=== PATIENT | male | born 1985 | race Caucasian/White ===

== ENCOUNTER 2020-06-18 04:10 | Inpatient (IN) ==
[2020-06-18 04:15] VITALS: BMI 35.2
[2020-06-18] MEDS ORDERED: DILAUDID INJ IVP ONE ×3 (04:40→07:43)
[2020-06-18] MEDS ORDERED: ZOFRAN INJ 4 MG VIAL IVP ONE (04:40)
[2020-06-18] MEDS ORDERED: DILAUDID INJ ONE ×4 (04:44→07:51)
[2020-06-18] MEDS ORDERED: ZOFRAN INJ 4 MG VIAL ONE ×2 (04:44→14:42)
[2020-06-18] MEDS ORDERED: XYLOCAINE 1 % (PLAIN) ONE ×2 (06:48→07:42)
[2020-06-18] MEDS ORDERED: STERILE WATER IRRIGATION IR ONE (06:49)
[2020-06-18] MEDS ORDERED: BETADINE SOLN ONE (06:53)
[2020-06-18] MEDS: DILAUDID INJ IVP PRN ×3 (07:55→18:10)
[2020-06-18] MEDS ORDERED: NEOSPORIN OINT ONE (08:05)
--- NOTE | 2020-06-18 08:14 | DR.CP ---
HPI Time Seen Time Seen by Provider: 06/18/20 08:06 PCP Primary Care Physician: megan HPI Comment HPI Comment: rt sided chest discomfort. asked to return due to rads reports showing pneumo. Complaint Chief Complaint Doctor Comments: as above Chief Complaint:: chest pain from coughing COVID-19 Coronavirus risk:travel/contact w/high risk person: No Has patient experienced Coronavirus symptoms: Yes Coronavirus symptoms experienced: Coughing and Shortness of Breath Reviewed Nurses Notes Review: Yes Source History Provided: Patient Mode of Arrival Mode of Arrival: Ambulatory Timing Onset of Chief Complaint: 06/14/20 PMH PMH Past Medical History: Yes Past Medical History: Arthritis Past Surgical History: No Surgical History: Unknown Family History History of Family Medical Conditions: Yes Family Medical History: Diabetes Mellitus and Hypertension Social History Does any household member use tobacco: No Alcohol Use: None Do you use any recreational Drugs:: No Lives With: Family Lives Where: Home Travel Risk Coronavirus risk:travel/contact w/high risk person: No Has patient experienced Coronavirus symptoms: Yes Coronavirus symptoms experienced: Coughing and Shortness of Breath Infectious screening In the last 2 months have you had wt loss of >10#?: NO Have you had fever, night sweats or hemotysis?: No Have you traveled outside the country in the last 6 months?: No Isolation: Standard ROS Review of Systems Constitutional: See HPI Eyes: No Symptoms Reported ENTM: No Symptoms Reported Respiratoy: See HPI and Short of Breath Cardiovascular: See HPI and Chest Pain Gastrointestinal/Abdominal: No Symptoms Reported Neurological: No Symptoms Reported Musculoskeletal: No Symptoms Reported Integumentary: No Symptoms Reported Hematologic/Lymphatic: No Symptoms Reported PE Vitals Vitals: Temperature 98.2 F Pulse Rate [Apical] 72 Pulse Rate 65 Respiratory Rate 22 Blood Pressure [Left Arm] 150/88 Blood Pressure [Right Arm] 152/92 Blood Pressure 124/82 O2 Sat by Pulse Oximetry 92 General Limitations: No Limitations General Appearance: Alert and Anxious Head Head Exam: Normal Inspection Chest Chest Inspection: Normal Inspection; negative Tenderness and Abscess Respiratory Respiratory Exam: negative Normal Lung Sounds Bilat (decr lung sounds on right), Accessory Muscle Use, Chest Wall Tenderness and Respiratory Distress Cardiovascular Cardiovascular Exam: Regular Rate and Normal Heart Sounds Pulse: Normal Abdominal Exam Abdominal Exam: Normal Inspection, Normal Bowel Sounds and Soft; negative Tenderness Extremities Extremities Exam: Normal Inspection and Full ROM Back Back Exam: Normal Inspection and Full ROM Neurologic Neurological Exam: Alert, Oriented X3 and CN II-XII Intact Skin Skin Exam: Warm, Dry and Intact COURSE Treatment Treatment: rt sided pnuemo s/p tube thoracostomy per gen surg dr velez Opioid Opioid Risk Tool Age (Jose E box if 16-45): Yes History of Preadolescent Sexual Abuse: No Total: 1 Total Score Risk Category: Low Risk Copyright: Tr VENCES predicting aberrant behaviors Diagnosis Discharge Problem: Chest pain, Pneumothorax
[2020-06-18] MEDS ORDERED: NEOSPORIN OINT TOP ONE (08:24)
[2020-06-18] MEDS ORDERED: MORPHINE SULFATE INJ 2 MG INJ IV PRN (08:36)
--- NOTE | 2020-06-18 08:46 | RAD ---
HISTORYChest tube placementSTUDYSingle-view [id number]/06/2021FINDINGSThe trachea is midline. The cardiac silhouette is accentuated by portable technique. A right-sided chest tube is observed with approximately 20-30 percent right pneumothorax remaining. The left annabella thorax appears clear. The bony thorax is unremarkable.IMPRESSIONInterval placement of a right-sided chest tube with improved appearance of the right pneumothorax.Electronically signed by: HARRISON BULLOCK (Jun 18, 2020 08:44:49)
[2020-06-18] MEDS ORDERED: DILAUDID INJ IVP PRN (10:21)
[2020-06-18] MEDS: NS 1000 ML 1,000 ML IV SCH (11:10)
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
[2020-06-18] MEDS ORDERED: ZOFRAN INJ 4 MG VIAL IVP PRN (14:33)
[2020-06-18] MEDS: NORCO 10/325 TAB PO PRN ×2 (14:44→22:10)
--- NOTE | 2020-06-18 17:35 | RAD ---
HISTORYchest tubeSTUDYCHEST, 1 VIEWCOMPARISONEarlier same dayFINDINGSThe cardiomediastinal silhouette is stable. Similar large right pneumothorax. Interval advancement of right-sided chest tube. The left lung is clear. The bony thorax appears intact.IMPRESSIONSimilar right-sided pneumothorax. Interval advancement of right chest tube.Electronically signed by: AMARILIS BRANCH (Jun 18, 2020 17:32:09)
[2020-06-18] MEDS ORDERED: MYLICON TAB 80 MG CHEW PO PRN (20:30)
[2020-06-18] MEDS: MORPHINE SULFATE INJ 2 MG INJ IV PRN (20:33)
[2020-06-19] MEDS: NS 1000 ML 1,000 ML IV SCH ×3 (00:50→13:47)
[2020-06-19] MEDS: DILAUDID INJ IVP PRN ×4 (01:16→19:39)
[2020-06-19] MEDS: MORPHINE SULFATE INJ 2 MG INJ IV PRN ×3 (04:56→23:45)
[2020-06-19 05:03] LABS: BASOPHILS # (AUTO) 0.1 X10^3/uL (0.0-0.1); BASOPHILS % (AUTO) 0.6 % (0.2-1.0); EOSINOPHILS # (AUTO) 0.1 x10^3/uL (0.0-0.2); EOSINOPHILS % (AUTO) 0.9 % (0.9-2.9); HEMATOCRIT 44.3 % (42.0-54.0); HEMOGLOBIN 14.8 g/dL (13.5-18.0); LYMPHOCYTES # (AUTO) 2.9 X10^3/uL (1.3-2.9); LYMPHOCYTES % (AUTO) 31.2 % (21.0-51.0); MEAN CORPUSCULAR HEMOGLOBIN 30.1 pg (27.0-34.0); MEAN CORPUSCULAR HGB CONC 33.3 g/dL (33.0-35.0); MEAN CORPUSCULAR VOLUME 90.3 fL (80.0-100.0); MEAN PLATELET VOLUME 8.8 fL (7.4-11.0); MONOCYTES # (AUTO) 0.8 x10^3/uL (0.3-0.8); MONOCYTES % (AUTO) 8.8 % (0.0-13.0); NEUTROPHILS # (AUTO) 5.4 x10^3/uL (2.2-4.8); NEUTROPHILS % (AUTO) 58.5 % (42.0-75.0); PLATELET COUNT 219 X10^3/uL (150.0-450.0); RED CELL DISTRIBUTION WIDTH 13.7 % (11.6-16.5); WHITE BLOOD COUNT 9.2 X10^3/uL (3.6-10.0)
--- NOTE | 2020-06-19 05:11 | RAD ---
STUDY: CHEST, 1 VIEWCOMPARISON: June 18, 2020HISTORY: SOB, F/U FOR PNEUMOTHORAXFINDINGS:The right-sided pneumothorax is unchanged from prior study. Right chest tube is seen traversing along the right hemidiaphragm. This is unchanged from the prior study. Cardiomediastinal contour is stable. Left lung is clear.IMPRESSION:Right pneumothorax is stableElectronically signed by: Cameron Gilliam (Jun 19, 2020 05:08:47)
[2020-06-19 05:19] LABS: ALANINE AMINOTRANSFERASE 47 Units/L (12-78); ALBUMIN 3.5 g/dL (3.4-5.0); ALKALINE PHOSPHATASE 65 Units/L (46-116); ASPARTATE AMINO TRANSFERASE 25 Units/L (15-37); BLOOD UREA NITROGEN 10 mg/dL (7-18); CALCIUM 8.7 mg/dL (8.5-10.1); CARBON DIOXIDE 29.5 mmol/L (21-32); CHLORIDE 103 mmol/L (98-107); COR NA(FOR HYPERGLY) 139 mmol/L (136-145); CREATININE 0.86 mg/dL (0.70-1.30); SODIUM 139 mmol/L (136-145); TOTAL PROTEIN 6.7 g/dL (6.4-8.2); eGFR NON BLACK RACES > 60 (>60)
--- NOTE | 2020-06-19 08:28 | PCM.PROG ---
Progress Note Progress Note for Day of Date of Exam: 06/19/20 Subjective Subjective: Pt is a 35 year old male admitted for spontaneous pneumothorax of right lung s/p chest tube placement on 06/18/20. This morning patient reports that his breathing has improved but still has pain that is not adequately controlled. Labs/imaging: Wbc 9.2, Hgb 14.8, Plt 219, Na 139, K 4.0, Creatinine 0.86, Glucose 111, CXR this morning revealed right pneumothorax is stable. Will continue chest tube maintenance and pain control. Will increase morphine to help manage pain symptoms. Surgery following patient, will defer to Dr Devlin management and recommendations for chest tube. Continue to closely monitor and follow up labs/imaging in the morning. Past Medical Family Social History Past Med/Fam/Surg Hx: No changes since H&P Allergies: Allergies No Known Drug Allergies Allergy (Verified 10/22/18 23:33) Review of Systems ROS: No change since H&P Vital Signs and I&O's Vital Signs: Temperature 97.8 F Pulse Rate [Apical] 70 Pulse Rate 88 Respiratory Rate 22 Blood Pressure [Left Arm] 127/60 Blood Pressure [Right Arm] 125/95 Blood Pressure 120/75 O2 Sat by Pulse Oximetry 100 Intake and Output: Intake & Output 06/16/20 06/17/20 06/18/20 06/19/20 23:59 23:59 23:59 23:59 Intake Total 2171 / 2171 840 / 840 Output Total 1030 / 1030 835 / 835 Balance 1141 / 1141 5 / 5 Physical Exam Oriented: Normal Eyes: Normal Ear: Normal Nose: Normal Respiratory: Diminished (Right side) and OTHER (Right chest tube noted) Cardiovascular: Normal : Normal Auscultation: Bowel Sounds: Normal Tenderness: Normal Skin: Normal Musculoskeletal: Normal Psychiatric: Normal Mood Description: Calm Speech Pattern: Clear and Appropriate Laboratory and Diagnostics Result Diagrams: 06/19/20 04:35 06/19/20 04:35 Labs: Laboratory WBC 9.2 X10^3/uL (3.6-10.0) 06/19/20 04:35 RBC 4.90 X10^6/uL (4.7-6.0) 06/19/20 04:35 Hgb 14.8 g/dL (13.5-18.0) 06/19/20 04:35 Hct 44.3 % (42.0-54.0) 06/19/20 04:35 MCV 90.3 fL (80.0-100.0) 06/19/20 04:35 MCH 30.1 pg (27.0-34.0) 06/19/20 04:35 MCHC 33.3 g/dL (33.0-35.0) 06/19/20 04:35 RDW 13.7 % (11.6-16.5) 06/19/20 04:35 Plt Count 219 X10^3/uL (150.0-450.0) 06/19/20 04:35 MPV 8.8 fL (7.4-11.0) 06/19/20 04:35 Neut % (Auto) 58.5 % (42.0-75.0) 06/19/20 04:35 Lymph % (Auto) 31.2 % (21.0-51.0) 06/19/20 04:35 Cooper % (Auto) 8.8 % (0.0-13.0) 06/19/20 04:35 Eos % (Auto) 0.9 % (0.9-2.9) 06/19/20 04:35 Baso % (Auto) 0.6 % (0.2-1.0) 06/19/20 04:35 Neut # (Auto) 5.4 x10^3/uL (2.2-4.8) H 06/19/20 04:35 Lymph # (Auto) 2.9 X10^3/uL (1.3-2.9) 06/19/20 04:35 Cooper # (Auto) 0.8 x10^3/uL (0.3-0.8) 06/19/20 04:35 Eos # (Auto) 0.1 x10^3/uL (0.0-0.2) 06/19/20 04:35 Baso # (Auto) 0.1 X10^3/uL (0.0-0.1) 06/19/20 04:35 Absolute Nucleated RBC 0.0 /100WBC 06/19/20 04:35 Sodium 139 mmol/L (136-145) 06/19/20 04:35 Corrected Sodium 139 mmol/L (136-145) 06/19/20 04:35 Potassium 4.0 mmol/L (3.5-5.1) 06/19/20 04:35 Chloride 103 mmol/L (98-107) 06/19/20 04:35 Carbon Dioxide 29.5 mmol/L (21-32) 06/19/20 04:35 BUN 10 mg/dL (7-18) 06/19/20 04:35 Creatinine 0.86 mg/dL (0.70-1.30) 06/19/20 04:35 Est GFR (MDRD) Af Amer > 60 (>60) 06/19/20 04:35 Est GFR (MDRD) Non-Af > 60 (>60) 06/19/20 04:35 Glucose 111 mg/dL (65-99) H 06/19/20 04:35 Calcium 8.7 mg/dL (8.5-10.1) 06/19/20 04:35 Corrected Calcium TNP 06/19/20 04:35 Total Bilirubin 0.40 mg/dL (0.2-1.0) 06/19/20 04:35 AST 25 Units/L (15-37) 06/19/20 04:35 ALT 47 Units/L (12-78) 06/19/20 04:35 Alkaline Phosphatase 65 Units/L (46-116) 06/19/20 04:35 Total Protein 6.7 g/dL (6.4-8.2) 06/19/20 04:35 Albumin 3.5 g/dL (3.4-5.0) 06/19/20 04:35 Globulin 3.2 g/dL (2.5-4.5) 06/19/20 04:35 Albumin/Globulin Ratio 1.1 Ratio (1.1-2.1) 06/19/20 04:35 Plan (1) Pneumothorax: Status: Acute Qualifiers: Pneumothorax type: spontaneous, primary Qualified Code(s): J93.11 - Primary spontaneous pneumothorax Plan: Right chest tube placement (06/18/20) Follow surgery recommendations. (2) Chest pain: Status: Acute
[2020-06-19] MEDS ORDERED: VERSED ONE (09:15)
[2020-06-19] MEDS ORDERED: DIPRIVAN VIAL ONE (09:15)
[2020-06-19] MEDS ORDERED: XYLOCAINE 1 % (PLAIN) ONE ×2 (09:15→09:32)
[2020-06-19] MEDS ORDERED: DECADRON INJ ONE (09:20)
[2020-06-19] MEDS ORDERED: OFIRMEV IV 1000 MG VIAL 1,000 MG/100 ML VIAL IV ONE (09:21)
[2020-06-19] MEDS ORDERED: FENTANYL INJ 100 mcg ONE (09:21)
[2020-06-19] MEDS: SOMA TAB 350 MG PO SCH (09:41)
[2020-06-19] MEDS ORDERED: BACTROBAN TOPICAL OINT ONE (09:48)
--- NOTE | 2020-06-19 11:46 | RAD ---
HISTORYS/P CHEST TUBE MANIPULATION IN ORSTUDYCHEST, 1 VIEWCOMPARISONThere earlier same dayFINDINGSThe trachea is midline. The cardiac silhouette is stable.. A right-sided chest tube is noted with tip overlying the right lung apex. Previously noted pneumothorax appears to have resolved. There is a small amount of infiltrate/effusion in the right lung base. Left lung is clear. The bony thorax is unremarkable.IMPRESSIONRight-sided chest tube placement as above with no pneumothorax on this exam. There is small effusion/infiltrate probably due to atelectasis.Electronically signed by: YASMINE COBIAN (Jun 19, 2020 10:20:33)
[2020-06-19] MEDS: NORCO 10/325 TAB PO PRN (21:35)
[2020-06-20] MEDS: DILAUDID INJ IVP PRN ×3 (04:27→18:30)
[2020-06-20] MEDS: NS 1000 ML 1,000 ML IV SCH ×3 (04:28→21:31)
[2020-06-20 06:13] LABS: BASOPHILS % (AUTO) 0.3 % (0.2-1.0); EOSINOPHILS # (AUTO) 0.1 x10^3/uL (0.0-0.2); EOSINOPHILS % (AUTO) 0.9 % (0.9-2.9); HEMATOCRIT 41.5 % (42.0-54.0); LYMPHOCYTES # (AUTO) 3.3 X10^3/uL (1.3-2.9); LYMPHOCYTES % (AUTO) 28.3 % (21.0-51.0); MEAN CORPUSCULAR HEMOGLOBIN 30.1 pg (27.0-34.0); MEAN CORPUSCULAR HGB CONC 33.7 g/dL (33.0-35.0); MEAN CORPUSCULAR VOLUME 89.3 fL (80.0-100.0); MONOCYTES % (AUTO) 8.1 % (0.0-13.0); NEUTROPHILS # (AUTO) 7.4 x10^3/uL (2.2-4.8); NEUTROPHILS % (AUTO) 62.4 % (42.0-75.0); PLATELET COUNT 222 X10^3/uL (150.0-450.0); RED BLOOD COUNT 4.65 X10^6/uL (4.7-6.0); RED CELL DISTRIBUTION WIDTH 13.4 % (11.6-16.5); WHITE BLOOD COUNT 11.8 X10^3/uL (3.6-10.0)
--- NOTE | 2020-06-20 06:32 | RAD ---
HISTORYF/U FOR RT SIDED PNEUMOTHORAXSTUDYCHEST, 1 VIEWCOMPARISONOne day prior.TECHNIQUEAP chest, 2 imagesFINDINGSCardiac and mediastinal contours are within normal limits. There is a right thoracostomy tube with the tip at the right apex. Right medial base opacity is similar to prior there is subcutaneous emphysema in the chest wall. No pneumothorax is identified. No significant pleural effusion.IMPRESSIONSimilar positioning of right thoracostomy tube. No pneumothorax identified. Right medial base opacity appears similar.Electronically signed by: Doug Appiah (Jun 20, 2020 06:31:11)
[2020-06-20 06:34] LABS: ALANINE AMINOTRANSFERASE 47 Units/L (12-78); ALBUMIN 3.2 g/dL (3.4-5.0); ALKALINE PHOSPHATASE 58 Units/L (46-116); ASPARTATE AMINO TRANSFERASE 20 Units/L (15-37); BLOOD UREA NITROGEN 12 mg/dL (7-18); CALCIUM 8.8 mg/dL (8.5-10.1); CARBON DIOXIDE 23.8 mmol/L (21-32); CHLORIDE 103 mmol/L (98-107); COR CA(FOR HYPOALB) 9.4 mg/dL (8.5-10.1); CREATININE 0.73 mg/dL (0.70-1.30); SODIUM 136 mmol/L (136-145); TOTAL PROTEIN 6.5 g/dL (6.4-8.2); eGFR NON BLACK RACES > 60 (>60)
[2020-06-20] MEDS: MORPHINE SULFATE INJ 2 MG INJ IV PRN ×3 (07:32→21:31)
--- NOTE | 2020-06-20 08:33 | DR.PROGNOT ---
Hospital Progress Notes - Progress Note for Day of: Progress Note Date: 06/20/20 - Chief Complaint Chief Complaint: nonew complaint today . no SOB and less chest pain . chest Xray is showing expanded RT lung with small Rt pleural fluid and atelectasis . mild leukocytosis . O2 sat 94 to 97 - Past Medical Family Social History Past Med/Fam/Surg Hx: No changes since H&P Allergies: Allergies No Known Drug Allergies Allergy (Verified 10/22/18 23:33) - Review Of Systems ROS: No change since H&P - Vital Signs Vital Signs: Temperature 97.9 F Pulse Rate [Apical] 52 Pulse Rate 88 Respiratory Rate 20 Blood Pressure [Left Arm] 112/72 Blood Pressure [Right Arm] 115/76 Blood Pressure 120/75 O2 Sat by Pulse Oximetry 94 - Physical Exam Oriented: Normal Eyes: Normal Ear: Normal Nose: Normal Respiratory: OTHER (Right chest tube noted) Cardiovascular: Normal : Normal GI:Auscultation: Normal GI:Palpation: Normal GI: Tenderness: Normal Skin: Normal Musculoskeletal: Normal Psychiatric: Normal Mood Description: Calm Speech Pattern: Clear, Appropriate - Laboratory and Diagnostics Result Diagrams: 06/20/20 04:30 06/20/20 04:30 Labs: Laboratory WBC 11.8 X10^3/uL (3.6-10.0) H 06/20/20 04:30 RBC 4.65 X10^6/uL (4.7-6.0) L 06/20/20 04:30 Hgb 14.0 g/dL (13.5-18.0) 06/20/20 04:30 Hct 41.5 % (42.0-54.0) L 06/20/20 04:30 MCV 89.3 fL (80.0-100.0) 06/20/20 04:30 MCH 30.1 pg (27.0-34.0) 06/20/20 04:30 MCHC 33.7 g/dL (33.0-35.0) 06/20/20 04:30 RDW 13.4 % (11.6-16.5) 06/20/20 04:30 Plt Count 222 X10^3/uL (150.0-450.0) 06/20/20 04:30 MPV 9.0 fL (7.4-11.0) 06/20/20 04:30 Neut % (Auto) 62.4 % (42.0-75.0) 06/20/20 04:30 Lymph % (Auto) 28.3 % (21.0-51.0) 06/20/20 04:30 [place] % (Auto) 8.1 % (0.0-13.0) 06/20/20 04:30 Eos % (Auto) 0.9 % (0.9-2.9) 06/20/20 04:30 Baso % (Auto) 0.3 % (0.2-1.0) 06/20/20 04:30 Neut # (Auto) 7.4 x10^3/uL (2.2-4.8) H 06/20/20 04:30 Lymph # (Auto) 3.3 X10^3/uL (1.3-2.9) H 06/20/20 04:30 [place] # (Auto) 1.0 x10^3/uL (0.3-0.8) H 06/20/20 04:30 Eos # (Auto) 0.1 x10^3/uL (0.0-0.2) 06/20/20 04:30 Baso # (Auto) 0.0 X10^3/uL (0.0-0.1) 06/20/20 04:30 Absolute Nucleated RBC 0.1 /100WBC 06/20/20 04:30 Sodium 136 mmol/L (136-145) 06/20/20 04:30 Corrected Sodium TNP 06/20/20 04:30 Potassium 3.7 mmol/L (3.5-5.1) 06/20/20 04:30 Chloride 103 mmol/L (98-107) 06/20/20 04:30 Carbon Dioxide 23.8 mmol/L (21-32) 06/20/20 04:30 BUN 12 mg/dL (7-18) 06/20/20 04:30 Creatinine 0.73 mg/dL (0.70-1.30) 06/20/20 04:30 Est GFR (MDRD) Af Amer > 60 (>60) 06/20/20 04:30 Est GFR (MDRD) Non-Af > 60 (>60) 06/20/20 04:30 Glucose 105 mg/dL (65-99) H 06/20/20 04:30 Calcium 8.8 mg/dL (8.5-10.1) 06/20/20 04:30 Corrected Calcium 9.4 mg/dL (8.5-10.1) 06/20/20 04:30 Total Bilirubin 0.40 mg/dL (0.2-1.0) 06/20/20 04:30 AST 20 Units/L (15-37) 06/20/20 04:30 ALT 47 Units/L (12-78) 06/20/20 04:30 Alkaline Phosphatase 58 Units/L (46-116) 06/20/20 04:30 Total Protein 6.5 g/dL (6.4-8.2) 06/20/20 04:30 Albumin 3.2 g/dL (3.4-5.0) L 06/20/20 04:30 Globulin 3.3 g/dL (2.5-4.5) 06/20/20 04:30 Albumin/Globulin Ratio 1.0 Ratio (1.1-2.1) L 06/20/20 04:30 - Assessment and Plan 1: spontaneous pneumothorax Rt side . s/p placement of chest tube . same plan for now . incentive spirometer . keep chest tube for few days before testing for more leak . - Problem Patient Problems: Patient Problems Chest pain (Acute) R07.9 Pneumothorax (Acute) J93.9
[2020-06-20] MEDS: SOMA TAB 350 MG PO SCH (08:40)
[2020-06-20] MEDS: NORCO 10/325 TAB PO PRN (11:10)
--- NOTE | 2020-06-20 11:37 | PCM.PROG ---
Progress Note Progress Note for Day of Date of Exam: 06/20/20 Subjective Subjective: Pt is a 35 year old male admitted for spontaneous pneumothorax of right lung s/p chest tube placement on 06/18/20. Yesterday patient had chest tube repositioned with successful re-expansion of right lung seen on CXR. He reports his breathing has improved. Labs/imaging: Wbc 11.8, Hgb 14, Plt 222, Na 136, K 3.7, Creatinine 0.73, Glucose 105, CXR this morning revealed: Similar positioning of right thoracostomy tube. No pneumothorax identified. Right medial base opacity appears similar. Will continue chest tube maintenance and pain control. Surgery following patient, will defer to Dr Devlin management and recommendations for chest tube. Order Chest CT tomorrow to evaluate for any pleural blebs. Continue to closely monitor and follow up labs/imaging in the morning. Past Medical Family Social History Past Med/Fam/Surg Hx: No changes since H&P Allergies: Allergies No Known Drug Allergies Allergy (Verified 10/22/18 23:33) Review of Systems ROS: No change since H&P Vital Signs and I&O's Vital Signs: Temperature 98.1 F Pulse Rate [Apical] 75 Pulse Rate 88 Respiratory Rate 22 Blood Pressure [Left Arm] 139/78 Blood Pressure [Right Arm] 115/76 Blood Pressure 120/75 O2 Sat by Pulse Oximetry 92 Intake and Output: Intake & Output 06/17/20 06/18/20 06/19/20 06/20/20 23:59 23:59 23:59 23:59 Intake Total 2171 / 2171 3582 / 3582 727 / 727 Output Total 1030 / 1030 3156 / 3156 500 / 500 Balance 1141 / 1141 426 / 426 227 / 227 Physical Exam Oriented: Normal Eyes: Normal Ear: Normal Nose: Normal Respiratory: OTHER (Right chest tube noted) Cardiovascular: Normal : Normal Auscultation: Bowel Sounds: Normal Tenderness: Normal Skin: Normal Musculoskeletal: Normal Psychiatric: Normal Mood Description: Calm Speech Pattern: Clear and Appropriate Laboratory and Diagnostics Result Diagrams: 06/20/20 04:30 06/20/20 04:30 Labs: Laboratory WBC 11.8 X10^3/uL (3.6-10.0) H 06/20/20 04:30 RBC 4.65 X10^6/uL (4.7-6.0) L 06/20/20 04:30 Hgb 14.0 g/dL (13.5-18.0) 06/20/20 04:30 Hct 41.5 % (42.0-54.0) L 06/20/20 04:30 MCV 89.3 fL (80.0-100.0) 06/20/20 04:30 MCH 30.1 pg (27.0-34.0) 06/20/20 04:30 MCHC 33.7 g/dL (33.0-35.0) 06/20/20 04:30 RDW 13.4 % (11.6-16.5) 06/20/20 04:30 Plt Count 222 X10^3/uL (150.0-450.0) 06/20/20 04:30 MPV 9.0 fL (7.4-11.0) 06/20/20 04:30 Neut % (Auto) 62.4 % (42.0-75.0) 06/20/20 04:30 Lymph % (Auto) 28.3 % (21.0-51.0) 06/20/20 04:30 Weber % (Auto) 8.1 % (0.0-13.0) 06/20/20 04:30 Eos % (Auto) 0.9 % (0.9-2.9) 06/20/20 04:30 Baso % (Auto) 0.3 % (0.2-1.0) 06/20/20 04:30 Neut # (Auto) 7.4 x10^3/uL (2.2-4.8) H 06/20/20 04:30 Lymph # (Auto) 3.3 X10^3/uL (1.3-2.9) H 06/20/20 04:30 Weber # (Auto) 1.0 x10^3/uL (0.3-0.8) H 06/20/20 04:30 Eos # (Auto) 0.1 x10^3/uL (0.0-0.2) 06/20/20 04:30 Baso # (Auto) 0.0 X10^3/uL (0.0-0.1) 06/20/20 04:30 Absolute Nucleated RBC 0.1 /100WBC 06/20/20 04:30 Sodium 136 mmol/L (136-145) 06/20/20 04:30 Corrected Sodium TNP 06/20/20 04:30 Potassium 3.7 mmol/L (3.5-5.1) 06/20/20 04:30 Chloride 103 mmol/L (98-107) 06/20/20 04:30 Carbon Dioxide 23.8 mmol/L (21-32) 06/20/20 04:30 BUN 12 mg/dL (7-18) 06/20/20 04:30 Creatinine 0.73 mg/dL (0.70-1.30) 06/20/20 04:30 Est GFR (MDRD) Af Amer > 60 (>60) 06/20/20 04:30 Est GFR (MDRD) Non-Af > 60 (>60) 06/20/20 04:30 Glucose 105 mg/dL (65-99) H 06/20/20 04:30 Calcium 8.8 mg/dL (8.5-10.1) 06/20/20 04:30 Corrected Calcium 9.4 mg/dL (8.5-10.1) 06/20/20 04:30 Total Bilirubin 0.40 mg/dL (0.2-1.0) 06/20/20 04:30 AST 20 Units/L (15-37) 06/20/20 04:30 ALT 47 Units/L (12-78) 06/20/20 04:30 Alkaline Phosphatase 58 Units/L (46-116) 06/20/20 04:30 Total Protein 6.5 g/dL (6.4-8.2) 06/20/20 04:30 Albumin 3.2 g/dL (3.4-5.0) L 06/20/20 04:30 Globulin 3.3 g/dL (2.5-4.5) 06/20/20 04:30 Albumin/Globulin Ratio 1.0 Ratio (1.1-2.1) L 06/20/20 04:30 Plan (1) Pneumothorax: Status: Acute Qualifiers: Pneumothorax type: spontaneous, primary Qualified Code(s): J93.11 - Primary spontaneous pneumothorax Plan: Right chest tube placement (06/18/20) Follow surgery recommendations. (2) Chest pain: Status: Acute
[2020-06-21] MEDS: NORCO 10/325 TAB PO PRN ×3 (00:12→21:34)
[2020-06-21] MEDS: DILAUDID INJ IVP PRN ×2 (02:28→09:32)
[2020-06-21] MEDS: MORPHINE SULFATE INJ 2 MG INJ IV PRN ×3 (05:05→19:54)
[2020-06-21 05:09] LABS: BASOPHILS # (AUTO) 0.1 X10^3/uL (0.0-0.1); BASOPHILS % (AUTO) 0.6 % (0.2-1.0); EOSINOPHILS # (AUTO) 0.2 x10^3/uL (0.0-0.2); EOSINOPHILS % (AUTO) 1.8 % (0.9-2.9); HEMATOCRIT 44.4 % (42.0-54.0); HEMOGLOBIN 14.6 g/dL (13.5-18.0); LYMPHOCYTES # (AUTO) 3.1 X10^3/uL (1.3-2.9); LYMPHOCYTES % (AUTO) 36.1 % (21.0-51.0); MEAN CORPUSCULAR HEMOGLOBIN 29.8 pg (27.0-34.0); MEAN CORPUSCULAR HGB CONC 32.8 g/dL (33.0-35.0); MEAN CORPUSCULAR VOLUME 90.8 fL (80.0-100.0); MEAN PLATELET VOLUME 8.6 fL (7.4-11.0); MONOCYTES # (AUTO) 0.7 x10^3/uL (0.3-0.8); MONOCYTES % (AUTO) 7.6 % (0.0-13.0); NEUTROPHILS # (AUTO) 4.7 x10^3/uL (2.2-4.8); NEUTROPHILS % (AUTO) 53.9 % (42.0-75.0); PLATELET COUNT 228 X10^3/uL (150.0-450.0); RED BLOOD COUNT 4.89 X10^6/uL (4.7-6.0); RED CELL DISTRIBUTION WIDTH 13.3 % (11.6-16.5); WHITE BLOOD COUNT 8.7 X10^3/uL (3.6-10.0)
[2020-06-21 05:23] LABS: ALANINE AMINOTRANSFERASE 53 Units/L (12-78); ALBUMIN 3.1 g/dL (3.4-5.0); ALKALINE PHOSPHATASE 59 Units/L (46-116); ASPARTATE AMINO TRANSFERASE 23 Units/L (15-37); BLOOD UREA NITROGEN 16 mg/dL (7-18); CALCIUM 8.8 mg/dL (8.5-10.1); CARBON DIOXIDE 26.4 mmol/L (21-32); CHLORIDE 105 mmol/L (98-107); COR CA(FOR HYPOALB) 9.5 mg/dL (8.5-10.1); CREATININE 0.92 mg/dL (0.70-1.30); SODIUM 138 mmol/L (136-145); TOTAL PROTEIN 6.3 g/dL (6.4-8.2); eGFR NON BLACK RACES > 60 (>60)
--- NOTE | 2020-06-21 06:38 | CT ---
HISTORYS/P CHEST TUBE, RT SIDED PNEUMOTHORAXSTUDYCHEST W/O CONCOMPARISONChest radiograph from 06/20/2020.TECHNIQUEMultiple axial images of the chest were obtained from the thoracic inlet to the upper abdomen without the administration of IV contrast. Dose reduction techniques including Automated Exposure Control (AEC) and adjustment of mA and kV were utilized.FINDINGSLack of contrast limits evaluation.The visualized thyroid gland appears benign. Non-atherosclerotic normal caliber thoracic aorta. Pulmonary artery is normal in caliber centrally. The heart is mildly enlarged. No pericardial effusion. No pathologic adenopathy in the thorax. Mild patchy soft tissue density in the prevascular space is likely thymic tissue. Visualized upper abdomen has a benign appearance. No acute osseous abnormality. The trachea and mainstem bronchi appear patent. There is a right thoracostomy tube in situ with the tip at the right apex. There is a small residual right base pneumothorax. There is approximately 1.2 cm of pleural separation at the right base on image 38 series 4. Mild emphysema. There is significant atelectasis with collapse of most of the right lower and middle lobes. Mild left lower lobe dependent atelectasis. Subcutaneous emphysema in the chest wall, worse on the right.IMPRESSIONSmall right basilar pneumothorax remains. There is significant atelectasis of the right middle and lower lobes.Mild emphysema. Mild left lower lobe subsegmental atelectasis.Electronically signed by: Doug Appiah (Jun 21, 2020 06:36:34)
[2020-06-21] MEDS: NS 1000 ML 1,000 ML IV SCH ×2 (07:06→11:16)
--- NOTE | 2020-06-21 08:37 | DR.PROGNOT ---
Hospital Progress Notes - Progress Note for Day of: Progress Note Date: 06/21/20 - Chief Complaint Chief Complaint: comfortable today . no SOB and less chest pain . chest CT showed expanded RT lung with small Rt pneuomothorax , lower and middle lobe atelectasis . mild leukocytosis . O2 sat 94 to 97 - Past Medical Family Social History Past Med/Fam/Surg Hx: No changes since H&P Allergies: Allergies No Known Drug Allergies Allergy (Verified 10/22/18 23:33) - Review Of Systems ROS: No change since H&P - Vital Signs Vital Signs: Temperature 97.6 F Pulse Rate [Apical] 57 Pulse Rate 73 Respiratory Rate 20 Blood Pressure [Left Arm] 102/62 Blood Pressure [Right Arm] 115/76 Blood Pressure 120/75 O2 Sat by Pulse Oximetry 94 - Physical Exam Oriented: Normal Eyes: Normal Ear: Normal Nose: Normal Respiratory: OTHER (Right chest tube noted) Cardiovascular: Normal : Normal GI:Auscultation: Normal GI:Palpation: Normal GI: Tenderness: Normal Skin: Normal Musculoskeletal: Normal Psychiatric: Normal Mood Description: Calm Speech Pattern: Clear, Appropriate - Laboratory and Diagnostics Result Diagrams: 06/21/20 04:40 06/21/20 04:40 Labs: Laboratory WBC 8.7 X10^3/uL (3.6-10.0) 06/21/20 04:40 RBC 4.89 X10^6/uL (4.7-6.0) 06/21/20 04:40 Hgb 14.6 g/dL (13.5-18.0) 06/21/20 04:40 Hct 44.4 % (42.0-54.0) 06/21/20 04:40 MCV 90.8 fL (80.0-100.0) 06/21/20 04:40 MCH 29.8 pg (27.0-34.0) 06/21/20 04:40 MCHC 32.8 g/dL (33.0-35.0) L 06/21/20 04:40 RDW 13.3 % (11.6-16.5) 06/21/20 04:40 Plt Count 228 X10^3/uL (150.0-450.0) 06/21/20 04:40 MPV 8.6 fL (7.4-11.0) 06/21/20 04:40 Neut % (Auto) 53.9 % (42.0-75.0) 06/21/20 04:40 Lymph % (Auto) 36.1 % (21.0-51.0) 06/21/20 04:40 [place] % (Auto) 7.6 % (0.0-13.0) 06/21/20 04:40 Eos % (Auto) 1.8 % (0.9-2.9) 06/21/20 04:40 Baso % (Auto) 0.6 % (0.2-1.0) 06/21/20 04:40 Neut # (Auto) 4.7 x10^3/uL (2.2-4.8) 06/21/20 04:40 Lymph # (Auto) 3.1 X10^3/uL (1.3-2.9) H 06/21/20 04:40 [place] # (Auto) 0.7 x10^3/uL (0.3-0.8) 06/21/20 04:40 Eos # (Auto) 0.2 x10^3/uL (0.0-0.2) 06/21/20 04:40 Baso # (Auto) 0.1 X10^3/uL (0.0-0.1) 06/21/20 04:40 Absolute Nucleated RBC 0.0 /100WBC 06/21/20 04:40 Sodium 138 mmol/L (136-145) 06/21/20 04:40 Corrected Sodium TNP 06/21/20 04:40 Potassium 4.0 mmol/L (3.5-5.1) 06/21/20 04:40 Chloride 105 mmol/L (98-107) 06/21/20 04:40 Carbon Dioxide 26.4 mmol/L (21-32) 06/21/20 04:40 BUN 16 mg/dL (7-18) 06/21/20 04:40 Creatinine 0.92 mg/dL (0.70-1.30) 06/21/20 04:40 Est GFR (MDRD) Af Amer > 60 (>60) 06/21/20 04:40 Est GFR (MDRD) Non-Af > 60 (>60) 06/21/20 04:40 Glucose 108 mg/dL (65-99) H 06/21/20 04:40 Calcium 8.8 mg/dL (8.5-10.1) 06/21/20 04:40 Corrected Calcium 9.5 mg/dL (8.5-10.1) 06/21/20 04:40 Total Bilirubin 0.30 mg/dL (0.2-1.0) 06/21/20 04:40 AST 23 Units/L (15-37) 06/21/20 04:40 ALT 53 Units/L (12-78) 06/21/20 04:40 Alkaline Phosphatase 59 Units/L (46-116) 06/21/20 04:40 Total Protein 6.3 g/dL (6.4-8.2) L 06/21/20 04:40 Albumin 3.1 g/dL (3.4-5.0) L 06/21/20 04:40 Globulin 3.2 g/dL (2.5-4.5) 06/21/20 04:40 Albumin/Globulin Ratio 1.0 Ratio (1.1-2.1) L 06/21/20 04:40 - Assessment and Plan 1: spontaneous pneumothorax Rt side . RT lower and midle lobe ateletasis, emphysema. s/p placement of chest tube . same plan for now . incentive spirometer . keep chest tube for few days before testing for more leak . - Problem Patient Problems: Patient Problems Chest pain (Acute) R07.9 Pneumothorax (Acute) J93.9
[2020-06-21] MEDS: SOMA TAB 350 MG PO SCH (09:25)
--- NOTE | 2020-06-21 12:34 | PCM.PROG ---
Progress Note Progress Note for Day of Date of Exam: 06/21/20 Subjective Subjective: Pt is a 35 year old male admitted for spontaneous pneumothorax of right lung s/p chest tube placement on 06/18/20. This morning he feels like his breathing has improved. He has been using incentive spirometer. Labs/imaging: Wbc 8.7, Hgb 14.6, Plt 228, Na 138, K 4.0, Creatinine 0.92, Glucose 108, CT chest was obtained that revealed: Small right basilar pneumothorax remains. There is significant atelectasis of the right middle and lower lobes. Mild emphysema. Mild left lower lobe subsegmental atelectasis. Continue chest tube maintenance and pain control. Surgery following patient, will defer to Dr Devlin management and recommendations for chest tube. Continue to monitor and follow up labs/imaging in the morning. Past Medical Family Social History Past Med/Fam/Surg Hx: No changes since H&P Allergies: Allergies No Known Drug Allergies Allergy (Verified 10/22/18 23:33) Review of Systems ROS: No change since H&P Vital Signs and I&O's Vital Signs: Temperature 97.9 F Pulse Rate [Apical] 61 Pulse Rate 73 Respiratory Rate 20 Blood Pressure [Left Arm] 122/83 Blood Pressure [Right Arm] 115/76 Blood Pressure 120/75 O2 Sat by Pulse Oximetry 96 Intake and Output: Intake & Output 06/18/20 06/19/20 06/20/20 06/21/20 23:59 23:59 23:59 23:59 Intake Total 2171 / 2171 3582 / 3582 2461 / 2461 1398 / 1398 Output Total 1030 / 1030 3156 / 3156 800 / 800 1650 / 1650 Balance 1141 / 1141 426 / 426 1661 / 1661 -252 / -252 Physical Exam Oriented: Normal Eyes: Normal Ear: Normal Nose: Normal Respiratory: OTHER (Right chest tube noted) Cardiovascular: Normal : Normal Auscultation: Bowel Sounds: Normal Tenderness: Normal Skin: Normal Musculoskeletal: Normal Psychiatric: Normal Mood Description: Calm Speech Pattern: Clear and Appropriate Laboratory and Diagnostics Result Diagrams: 06/21/20 04:40 06/21/20 04:40 Labs: Laboratory WBC 8.7 X10^3/uL (3.6-10.0) 06/21/20 04:40 RBC 4.89 X10^6/uL (4.7-6.0) 06/21/20 04:40 Hgb 14.6 g/dL (13.5-18.0) 06/21/20 04:40 Hct 44.4 % (42.0-54.0) 06/21/20 04:40 MCV 90.8 fL (80.0-100.0) 06/21/20 04:40 MCH 29.8 pg (27.0-34.0) 06/21/20 04:40 MCHC 32.8 g/dL (33.0-35.0) L 06/21/20 04:40 RDW 13.3 % (11.6-16.5) 06/21/20 04:40 Plt Count 228 X10^3/uL (150.0-450.0) 06/21/20 04:40 MPV 8.6 fL (7.4-11.0) 06/21/20 04:40 Neut % (Auto) 53.9 % (42.0-75.0) 06/21/20 04:40 Lymph % (Auto) 36.1 % (21.0-51.0) 06/21/20 04:40 [place] % (Auto) 7.6 % (0.0-13.0) 06/21/20 04:40 Eos % (Auto) 1.8 % (0.9-2.9) 06/21/20 04:40 Baso % (Auto) 0.6 % (0.2-1.0) 06/21/20 04:40 Neut # (Auto) 4.7 x10^3/uL (2.2-4.8) 06/21/20 04:40 Lymph # (Auto) 3.1 X10^3/uL (1.3-2.9) H 06/21/20 04:40 [place] # (Auto) 0.7 x10^3/uL (0.3-0.8) 06/21/20 04:40 Eos # (Auto) 0.2 x10^3/uL (0.0-0.2) 06/21/20 04:40 Baso # (Auto) 0.1 X10^3/uL (0.0-0.1) 06/21/20 04:40 Absolute Nucleated RBC 0.0 /100WBC 06/21/20 04:40 Sodium 138 mmol/L (136-145) 06/21/20 04:40 Corrected Sodium TNP 06/21/20 04:40 Potassium 4.0 mmol/L (3.5-5.1) 06/21/20 04:40 Chloride 105 mmol/L (98-107) 06/21/20 04:40 Carbon Dioxide 26.4 mmol/L (21-32) 06/21/20 04:40 BUN 16 mg/dL (7-18) 06/21/20 04:40 Creatinine 0.92 mg/dL (0.70-1.30) 06/21/20 04:40 Est GFR (MDRD) Af Amer > 60 (>60) 06/21/20 04:40 Est GFR (MDRD) Non-Af > 60 (>60) 06/21/20 04:40 Glucose 108 mg/dL (65-99) H 06/21/20 04:40 Calcium 8.8 mg/dL (8.5-10.1) 06/21/20 04:40 Corrected Calcium 9.5 mg/dL (8.5-10.1) 06/21/20 04:40 Total Bilirubin 0.30 mg/dL (0.2-1.0) 06/21/20 04:40 AST 23 Units/L (15-37) 06/21/20 04:40 ALT 53 Units/L (12-78) 06/21/20 04:40 Alkaline Phosphatase 59 Units/L (46-116) 06/21/20 04:40 Total Protein 6.3 g/dL (6.4-8.2) L 06/21/20 04:40 Albumin 3.1 g/dL (3.4-5.0) L 06/21/20 04:40 Globulin 3.2 g/dL (2.5-4.5) 06/21/20 04:40 Albumin/Globulin Ratio 1.0 Ratio (1.1-2.1) L 06/21/20 04:40 Plan (1) Pneumothorax: Status: Acute Qualifiers: Pneumothorax type: spontaneous, primary Qualified Code(s): J93.11 - Primary spontaneous pneumothorax Plan: Right chest tube placement (06/18/20) Follow surgery recommendations. (2) Chest pain: Status: Acute
[2020-06-22] MEDS: NS 1000 ML 1,000 ML IV SCH ×2 (00:06→16:53)
[2020-06-22] MEDS: MORPHINE SULFATE INJ 2 MG INJ IV PRN ×6 (05:00→21:27)
[2020-06-22 05:21] LABS: BASOPHILS % (AUTO) 0.5 % (0.2-1.0); EOSINOPHILS # (AUTO) 0.3 x10^3/uL (0.0-0.2); EOSINOPHILS % (AUTO) 2.8 % (0.9-2.9); HEMATOCRIT 43.5 % (42.0-54.0); HEMOGLOBIN 14.5 g/dL (13.5-18.0); LYMPHOCYTES # (AUTO) 2.7 X10^3/uL (1.3-2.9); LYMPHOCYTES % (AUTO) 29.6 % (21.0-51.0); MEAN CORPUSCULAR HGB CONC 33.3 g/dL (33.0-35.0); MEAN CORPUSCULAR VOLUME 90.1 fL (80.0-100.0); MEAN PLATELET VOLUME 8.7 fL (7.4-11.0); MONOCYTES # (AUTO) 0.7 x10^3/uL (0.3-0.8); MONOCYTES % (AUTO) 7.8 % (0.0-13.0); NEUTROPHILS # (AUTO) 5.3 x10^3/uL (2.2-4.8); NEUTROPHILS % (AUTO) 59.3 % (42.0-75.0); PLATELET COUNT 243 X10^3/uL (150.0-450.0); RED BLOOD COUNT 4.83 X10^6/uL (4.7-6.0); RED CELL DISTRIBUTION WIDTH 13.3 % (11.6-16.5)
[2020-06-22 05:33] LABS: ALANINE AMINOTRANSFERASE 56 Units/L (12-78); ALBUMIN 3.2 g/dL (3.4-5.0); ALKALINE PHOSPHATASE 60 Units/L (46-116); ASPARTATE AMINO TRANSFERASE 23 Units/L (15-37); BLOOD UREA NITROGEN 14 mg/dL (7-18); CARBON DIOXIDE 27.5 mmol/L (21-32); CHLORIDE 105 mmol/L (98-107); COR CA(FOR HYPOALB) 9.6 mg/dL (8.5-10.1); CREATININE 0.83 mg/dL (0.70-1.30); SODIUM 138 mmol/L (136-145); TOTAL PROTEIN 6.4 g/dL (6.4-8.2); eGFR NON BLACK RACES > 60 (>60)
--- NOTE | 2020-06-22 06:12 | RAD ---
STUDY: CHEST, 1 VIEWCOMPARISON: 06/20/2020HISTORY: F/U FOR RT SIDED PNEUMOTHORAXFINDINGS:The right-sided chest tube is in stable position.Cardiomediastinal contour is stable.No pleural effusion or gross pneumothorax is seen. The trachea is midline. Medial based opacity is stable.IMPRESSION:There is no significant change from prior exam.Electronically signed by: Cameron Gilliam (Jun 22, 2020 06:09:51)
[2020-06-22] MEDS: NORCO 10/325 TAB PO PRN ×2 (07:53→15:49)
[2020-06-22] MEDS: SOMA TAB 350 MG PO SCH (08:53)
--- NOTE | 2020-06-22 21:12 | PCM.PROG ---
Progress Note Progress Note for Day of Date of Exam: 06/22/20 Subjective Subjective: Pt is a 35 year old male admitted for spontaneous pneumothorax of right lung s/p chest tube placement on 06/18/20. This morning he has no concerns on breathing but reports having more pain. He has been using incentive spirometer. Labs/imaging: Wbc 9, Hgb 14.5, Plt 243, Na 138, K 3.9, Creatinine 0.83, Glucose 106, CXR this morning revealed: There is no significant change from prior exam. Continue chest tube maintenance and pain control. Will increase frequency of norco to adequately manage pain. Surgery following patient, will defer for management and recommendations for chest tube. Continue to monitor and follow up labs/imaging in the morning. Past Medical Family Social History Past Med/Fam/Surg Hx: No changes since H&P Allergies: Allergies No Known Drug Allergies Allergy (Verified 10/22/18 23:33) Review of Systems ROS: No change since H&P Vital Signs and I&O's Vital Signs: Temperature 98.2 F Pulse Rate [Apical] 100 Pulse Rate 73 Respiratory Rate 18 Blood Pressure [Left Arm] 102/54 Blood Pressure [Right Arm] 115/76 Blood Pressure 120/75 O2 Sat by Pulse Oximetry 96 Intake and Output: Intake & Output 06/19/20 06/20/20 06/21/20 06/22/20 23:59 23:59 23:59 23:59 Intake Total 3582 / 3582 2461 / 2461 3736 / 3736 2068 / 2068 Output Total 3156 / 3156 800 / 800 2653 / 2653 1600 / 1600 Balance 426 / 426 1661 / 1661 1083 / 1083 468 / 468 Physical Exam Oriented: Normal Eyes: Normal Ear: Normal Nose: Normal Respiratory: OTHER (Right chest tube noted) Cardiovascular: Normal : Normal Auscultation: Bowel Sounds: Normal Tenderness: Normal Skin: Normal Musculoskeletal: Normal Psychiatric: Normal Mood Description: Calm Speech Pattern: Clear and Appropriate Laboratory and Diagnostics Result Diagrams: 06/22/20 04:45 06/22/20 04:45 Labs: Laboratory WBC 9.0 X10^3/uL (3.6-10.0) 06/22/20 04:45 RBC 4.83 X10^6/uL (4.7-6.0) 06/22/20 04:45 Hgb 14.5 g/dL (13.5-18.0) 06/22/20 04:45 Hct 43.5 % (42.0-54.0) 06/22/20 04:45 MCV 90.1 fL (80.0-100.0) 06/22/20 04:45 MCH 30.0 pg (27.0-34.0) 06/22/20 04:45 MCHC 33.3 g/dL (33.0-35.0) 06/22/20 04:45 RDW 13.3 % (11.6-16.5) 06/22/20 04:45 Plt Count 243 X10^3/uL (150.0-450.0) 06/22/20 04:45 MPV 8.7 fL (7.4-11.0) 06/22/20 04:45 Neut % (Auto) 59.3 % (42.0-75.0) 06/22/20 04:45 Lymph % (Auto) 29.6 % (21.0-51.0) 06/22/20 04:45 [place] % (Auto) 7.8 % (0.0-13.0) 06/22/20 04:45 Eos % (Auto) 2.8 % (0.9-2.9) 06/22/20 04:45 Baso % (Auto) 0.5 % (0.2-1.0) 06/22/20 04:45 Neut # (Auto) 5.3 x10^3/uL (2.2-4.8) H 06/22/20 04:45 Lymph # (Auto) 2.7 X10^3/uL (1.3-2.9) 06/22/20 04:45 [place] # (Auto) 0.7 x10^3/uL (0.3-0.8) 06/22/20 04:45 Eos # (Auto) 0.3 x10^3/uL (0.0-0.2) H 06/22/20 04:45 Baso # (Auto) 0.0 X10^3/uL (0.0-0.1) 06/22/20 04:45 Absolute Nucleated RBC 0.0 /100WBC 06/22/20 04:45 Sodium 138 mmol/L (136-145) 06/22/20 04:45 Corrected Sodium TNP 06/22/20 04:45 Potassium 3.9 mmol/L (3.5-5.1) 06/22/20 04:45 Chloride 105 mmol/L (98-107) 06/22/20 04:45 Carbon Dioxide 27.5 mmol/L (21-32) 06/22/20 04:45 BUN 14 mg/dL (7-18) 06/22/20 04:45 Creatinine 0.83 mg/dL (0.70-1.30) 06/22/20 04:45 Est GFR (MDRD) Af Amer > 60 (>60) 06/22/20 04:45 Est GFR (MDRD) Non-Af > 60 (>60) 06/22/20 04:45 Glucose 106 mg/dL (65-99) H 06/22/20 04:45 Calcium 9.0 mg/dL (8.5-10.1) 06/22/20 04:45 Corrected Calcium 9.6 mg/dL (8.5-10.1) 06/22/20 04:45 Total Bilirubin 0.40 mg/dL (0.2-1.0) 06/22/20 04:45 AST 23 Units/L (15-37) 06/22/20 04:45 ALT 56 Units/L (12-78) 06/22/20 04:45 Alkaline Phosphatase 60 Units/L (46-116) 06/22/20 04:45 Total Protein 6.4 g/dL (6.4-8.2) 06/22/20 04:45 Albumin 3.2 g/dL (3.4-5.0) L 06/22/20 04:45 Globulin 3.2 g/dL (2.5-4.5) 06/22/20 04:45 Albumin/Globulin Ratio 1.0 Ratio (1.1-2.1) L 06/22/20 04:45 Plan (1) Pneumothorax: Status: Acute Qualifiers: Pneumothorax type: spontaneous, primary Qualified Code(s): J93.11 - Primary spontaneous pneumothorax Plan: Right chest tube placement (06/18/20) Follow surgery recommendations. (2) Chest pain: Status: Acute
[2020-06-23] MEDS: NORCO 10/325 TAB PO PRN ×4 (00:51→23:49)
[2020-06-23] MEDS: MORPHINE SULFATE INJ 2 MG INJ IV PRN ×5 (03:40→20:23)
[2020-06-23] MEDS: NS 1000 ML 1,000 ML IV SCH ×3 (05:44→23:51)
[2020-06-23 06:03] LABS: BASOPHILS # (AUTO) 0.1 X10^3/uL (0.0-0.1); BASOPHILS % (AUTO) 0.6 % (0.2-1.0); EOSINOPHILS # (AUTO) 0.2 x10^3/uL (0.0-0.2); EOSINOPHILS % (AUTO) 2.6 % (0.9-2.9); HEMATOCRIT 42.1 % (42.0-54.0); HEMOGLOBIN 14.2 g/dL (13.5-18.0); LYMPHOCYTES # (AUTO) 2.6 X10^3/uL (1.3-2.9); LYMPHOCYTES % (AUTO) 30.8 % (21.0-51.0); MEAN CORPUSCULAR HGB CONC 33.6 g/dL (33.0-35.0); MEAN CORPUSCULAR VOLUME 89.3 fL (80.0-100.0); MONOCYTES # (AUTO) 0.7 x10^3/uL (0.3-0.8); MONOCYTES % (AUTO) 7.7 % (0.0-13.0); NEUTROPHILS % (AUTO) 58.3 % (42.0-75.0); PLATELET COUNT 256 X10^3/uL (150.0-450.0); RED BLOOD COUNT 4.72 X10^6/uL (4.7-6.0); RED CELL DISTRIBUTION WIDTH 13.1 % (11.6-16.5); WHITE BLOOD COUNT 8.5 X10^3/uL (3.6-10.0)
[2020-06-23 06:16] LABS: ALANINE AMINOTRANSFERASE 55 Units/L (12-78); ALBUMIN 3.1 g/dL (3.4-5.0); ALKALINE PHOSPHATASE 60 Units/L (46-116); ASPARTATE AMINO TRANSFERASE 21 Units/L (15-37); BLOOD UREA NITROGEN 18 mg/dL (7-18); CALCIUM 8.9 mg/dL (8.5-10.1); CARBON DIOXIDE 26.6 mmol/L (21-32); CHLORIDE 104 mmol/L (98-107); COR CA(FOR HYPOALB) 9.6 mg/dL (8.5-10.1); CREATININE 0.85 mg/dL (0.70-1.30); SODIUM 136 mmol/L (136-145); TOTAL PROTEIN 6.3 g/dL (6.4-8.2); eGFR NON BLACK RACES > 60 (>60)
--- NOTE | 2020-06-23 07:34 | RAD ---
HISTORYFollow-up pneumothoraxSTUDYChest AP [id number] heart is enlarged. No congestive heart failure is noted. No acute alveolar infiltrates or pleural effusions are identified. There is a right chest tube in place. No residual or recurrent pneumothorax identified. Bony thorax is unremarkable.IMPRESSIONNo change cardiomegaly without congestive heart failureLungs clearNo pneumothoraxElectronically signed by: AMARILIS BRANCH (Jun 23, 2020 07:32:37)
--- NOTE | 2020-06-23 08:33 | DR.PROGNOT ---
Hospital Progress Notes - Progress Note for Day of: Progress Note Date: 06/23/20 - Chief Complaint Chief Complaint: comfortable today . no SOB and less chest pain . repeated chest Xray showed no pneumothorax . CBC and CMP are normal . afebrile . clear lung . - Past Medical Family Social History Past Med/Fam/Surg Hx: No changes since H&P Allergies: Allergies No Known Drug Allergies Allergy (Verified 10/22/18 23:33) - Review Of Systems ROS: No change since H&P - Vital Signs Vital Signs: Temperature 98.6 F Pulse Rate [Apical] 55 Pulse Rate 73 Respiratory Rate 16 Blood Pressure [Left Arm] 112/76 Blood Pressure [Right Arm] 115/76 Blood Pressure 120/75 O2 Sat by Pulse Oximetry 96 - Physical Exam Oriented: Normal Eyes: Normal Ear: Normal Nose: Normal Respiratory: OTHER (Right chest tube noted) Cardiovascular: Normal : Normal GI:Auscultation: Normal GI:Palpation: Normal GI: Tenderness: Normal Skin: Normal Musculoskeletal: Normal Psychiatric: Normal Mood Description: Calm Speech Pattern: Clear, Appropriate - Laboratory and Diagnostics Result Diagrams: 06/23/20 04:15 06/23/20 04:15 Labs: Laboratory WBC 8.5 X10^3/uL (3.6-10.0) 06/23/20 04:15 RBC 4.72 X10^6/uL (4.7-6.0) 06/23/20 04:15 Hgb 14.2 g/dL (13.5-18.0) 06/23/20 04:15 Hct 42.1 % (42.0-54.0) 06/23/20 04:15 MCV 89.3 fL (80.0-100.0) 06/23/20 04:15 MCH 30.0 pg (27.0-34.0) 06/23/20 04:15 MCHC 33.6 g/dL (33.0-35.0) 06/23/20 04:15 RDW 13.1 % (11.6-16.5) 06/23/20 04:15 Plt Count 256 X10^3/uL (150.0-450.0) 06/23/20 04:15 MPV 9.0 fL (7.4-11.0) 06/23/20 04:15 Neut % (Auto) 58.3 % (42.0-75.0) 06/23/20 04:15 Lymph % (Auto) 30.8 % (21.0-51.0) 06/23/20 04:15 [place] % (Auto) 7.7 % (0.0-13.0) 06/23/20 04:15 Eos % (Auto) 2.6 % (0.9-2.9) 06/23/20 04:15 Baso % (Auto) 0.6 % (0.2-1.0) 06/23/20 04:15 Neut # (Auto) 5.0 x10^3/uL (2.2-4.8) H 06/23/20 04:15 Lymph # (Auto) 2.6 X10^3/uL (1.3-2.9) 06/23/20 04:15 [place] # (Auto) 0.7 x10^3/uL (0.3-0.8) 06/23/20 04:15 Eos # (Auto) 0.2 x10^3/uL (0.0-0.2) 06/23/20 04:15 Baso # (Auto) 0.1 X10^3/uL (0.0-0.1) 06/23/20 04:15 Absolute Nucleated RBC 0.0 /100WBC 06/23/20 04:15 Sodium 136 mmol/L (136-145) 06/23/20 04:15 Corrected Sodium TNP 06/23/20 04:15 Potassium 4.1 mmol/L (3.5-5.1) 06/23/20 04:15 Chloride 104 mmol/L (98-107) 06/23/20 04:15 Carbon Dioxide 26.6 mmol/L (21-32) 06/23/20 04:15 BUN 18 mg/dL (7-18) 06/23/20 04:15 Creatinine 0.85 mg/dL (0.70-1.30) 06/23/20 04:15 Est GFR (MDRD) Af Amer > 60 (>60) 06/23/20 04:15 Est GFR (MDRD) Non-Af > 60 (>60) 06/23/20 04:15 Glucose 96 mg/dL (65-99) 06/23/20 04:15 Calcium 8.9 mg/dL (8.5-10.1) 06/23/20 04:15 Corrected Calcium 9.6 mg/dL (8.5-10.1) 06/23/20 04:15 Total Bilirubin 0.30 mg/dL (0.2-1.0) 06/23/20 04:15 AST 21 Units/L (15-37) 06/23/20 04:15 ALT 55 Units/L (12-78) 06/23/20 04:15 Alkaline Phosphatase 60 Units/L (46-116) 06/23/20 04:15 Total Protein 6.3 g/dL (6.4-8.2) L 06/23/20 04:15 Albumin 3.1 g/dL (3.4-5.0) L 06/23/20 04:15 Globulin 3.2 g/dL (2.5-4.5) 06/23/20 04:15 Albumin/Globulin Ratio 1.0 Ratio (1.1-2.1) L 06/23/20 04:15 - Assessment and Plan 1: spontaneous pneumothorax Rt side . RT lower and midle lobe ateletasis, emphysema. s/p placement of chest tube . same plan for now . incentive spirometer . to keep chest tube . - Problem Patient Problems: Patient Problems Chest pain (Acute) R07.9 Pneumothorax (Acute) J93.9
[2020-06-23] MEDS: SOMA TAB 350 MG PO SCH (08:56)
[2020-06-23] MEDS ORDERED: STERILE WATER IRRIGATION IR ONE (08:56)
--- NOTE | 2020-06-23 12:32 | PCM.PROG ---
Progress Note Progress Note for Day of Date of Exam: 06/23/20 Subjective Subjective: Pt is a 35 year old male admitted for spontaneous pneumothorax of right lung s/p chest tube placement on 06/18/20. He has been using incentive spirometer. Reports chest discomfort, no acute concerns overnight. Labs/imaging: Wbc 8.5, Hgb 14.2, Plt 256, Na 136, K 4.1, Creatinine 0.85, Glucose 96, CXR was obtained this morning and revealed: No change cardiomegaly without congestive heart failure. Lungs clear. No pneumothorax. Continue chest tube maintenance and pain control. Surgery following patient, will defer for management and recommendations for chest tube. Continue to monitor and follow up labs/imaging in the morning. Past Medical Family Social History Past Med/Fam/Surg Hx: No changes since H&P Allergies: Allergies No Known Drug Allergies Allergy (Verified 10/22/18 23:33) Review of Systems ROS: No change since H&P Vital Signs and I&O's Vital Signs: Temperature 98.3 F Pulse Rate [Apical] 60 Pulse Rate 73 Respiratory Rate 18 Blood Pressure [Left Arm] 117/68 Blood Pressure [Right Arm] 115/76 Blood Pressure 120/75 O2 Sat by Pulse Oximetry 96 Intake and Output: Intake & Output 06/20/20 06/21/20 06/22/20 06/23/20 23:59 23:59 23:59 23:59 Intake Total 2461 / 2461 3736 / 3736 2368 / 2368 1000 / 1000 Output Total 800 / 800 2653 / 2653 1600 / 1600 10 / 10 Balance 1661 / 1661 1083 / 1083 768 / 768 990 / 990 Physical Exam Oriented: Normal Eyes: Normal Ear: Normal Nose: Normal Respiratory: OTHER (Right chest tube noted) Cardiovascular: Normal : Normal Auscultation: Bowel Sounds: Normal Tenderness: Normal Skin: Normal Musculoskeletal: Normal Psychiatric: Normal Mood Description: Calm Speech Pattern: Clear and Appropriate Laboratory and Diagnostics Result Diagrams: 06/23/20 04:15 06/23/20 04:15 Labs: Laboratory WBC 8.5 X10^3/uL (3.6-10.0) 06/23/20 04:15 RBC 4.72 X10^6/uL (4.7-6.0) 06/23/20 04:15 Hgb 14.2 g/dL (13.5-18.0) 06/23/20 04:15 Hct 42.1 % (42.0-54.0) 06/23/20 04:15 MCV 89.3 fL (80.0-100.0) 06/23/20 04:15 MCH 30.0 pg (27.0-34.0) 06/23/20 04:15 MCHC 33.6 g/dL (33.0-35.0) 06/23/20 04:15 RDW 13.1 % (11.6-16.5) 06/23/20 04:15 Plt Count 256 X10^3/uL (150.0-450.0) 06/23/20 04:15 MPV 9.0 fL (7.4-11.0) 06/23/20 04:15 Neut % (Auto) 58.3 % (42.0-75.0) 06/23/20 04:15 Lymph % (Auto) 30.8 % (21.0-51.0) 06/23/20 04:15 [place] % (Auto) 7.7 % (0.0-13.0) 06/23/20 04:15 Eos % (Auto) 2.6 % (0.9-2.9) 06/23/20 04:15 Baso % (Auto) 0.6 % (0.2-1.0) 06/23/20 04:15 Neut # (Auto) 5.0 x10^3/uL (2.2-4.8) H 06/23/20 04:15 Lymph # (Auto) 2.6 X10^3/uL (1.3-2.9) 06/23/20 04:15 [place] # (Auto) 0.7 x10^3/uL (0.3-0.8) 06/23/20 04:15 Eos # (Auto) 0.2 x10^3/uL (0.0-0.2) 06/23/20 04:15 Baso # (Auto) 0.1 X10^3/uL (0.0-0.1) 06/23/20 04:15 Absolute Nucleated RBC 0.0 /100WBC 06/23/20 04:15 Sodium 136 mmol/L (136-145) 06/23/20 04:15 Corrected Sodium TNP 06/23/20 04:15 Potassium 4.1 mmol/L (3.5-5.1) 06/23/20 04:15 Chloride 104 mmol/L (98-107) 06/23/20 04:15 Carbon Dioxide 26.6 mmol/L (21-32) 06/23/20 04:15 BUN 18 mg/dL (7-18) 06/23/20 04:15 Creatinine 0.85 mg/dL (0.70-1.30) 06/23/20 04:15 Est GFR (MDRD) Af Amer > 60 (>60) 06/23/20 04:15 Est GFR (MDRD) Non-Af > 60 (>60) 06/23/20 04:15 Glucose 96 mg/dL (65-99) 06/23/20 04:15 Calcium 8.9 mg/dL (8.5-10.1) 06/23/20 04:15 Corrected Calcium 9.6 mg/dL (8.5-10.1) 06/23/20 04:15 Total Bilirubin 0.30 mg/dL (0.2-1.0) 06/23/20 04:15 AST 21 Units/L (15-37) 06/23/20 04:15 ALT 55 Units/L (12-78) 06/23/20 04:15 Alkaline Phosphatase 60 Units/L (46-116) 06/23/20 04:15 Total Protein 6.3 g/dL (6.4-8.2) L 06/23/20 04:15 Albumin 3.1 g/dL (3.4-5.0) L 06/23/20 04:15 Globulin 3.2 g/dL (2.5-4.5) 06/23/20 04:15 Albumin/Globulin Ratio 1.0 Ratio (1.1-2.1) L 06/23/20 04:15 Plan (1) Pneumothorax: Status: Acute Qualifiers: Pneumothorax type: spontaneous, primary Qualified Code(s): J93.11 - Primary spontaneous pneumothorax Plan: Right chest tube placement (06/18/20) Follow surgery recommendations. (2) Chest pain: Status: Acute
[2020-06-24] MEDS: MORPHINE SULFATE INJ 2 MG INJ IV PRN ×4 (02:14→20:25)
[2020-06-24 05:36] LABS: BASOPHILS % (AUTO) 0.4 % (0.2-1.0); EOSINOPHILS # (AUTO) 0.3 x10^3/uL (0.0-0.2); EOSINOPHILS % (AUTO) 3.2 % (0.9-2.9); HEMATOCRIT 42.8 % (42.0-54.0); HEMOGLOBIN 14.4 g/dL (13.5-18.0); LYMPHOCYTES # (AUTO) 2.8 X10^3/uL (1.3-2.9); LYMPHOCYTES % (AUTO) 35.3 % (21.0-51.0); MEAN CORPUSCULAR HGB CONC 33.7 g/dL (33.0-35.0); MEAN PLATELET VOLUME 8.7 fL (7.4-11.0); MONOCYTES # (AUTO) 0.6 x10^3/uL (0.3-0.8); MONOCYTES % (AUTO) 7.7 % (0.0-13.0); NEUTROPHILS # (AUTO) 4.2 x10^3/uL (2.2-4.8); NEUTROPHILS % (AUTO) 53.4 % (42.0-75.0); PLATELET COUNT 232 X10^3/uL (150.0-450.0); RED BLOOD COUNT 4.81 X10^6/uL (4.7-6.0); RED CELL DISTRIBUTION WIDTH 13.2 % (11.6-16.5); WHITE BLOOD COUNT 7.9 X10^3/uL (3.6-10.0)
--- NOTE | 2020-06-24 05:42 | RAD ---
HISTORYChest tube pneumothoraxSTUDYAP [id number]/12/2021FINDINGSHeart size is upper normal. Stable position of right chest tube at the pulmonary apex. Slight interval increase in atelectasis in both lung bases. The upper lobes are clear. No pneumothorax or other extrapulmonary air identified.IMPRESSIONInterval development of mild bibasal atelectasis. No change otherwise.Electronically signed by: YADIRA CROUCH (Jun 24, 2020 05:40:00)
[2020-06-24 05:44] LABS: ALANINE AMINOTRANSFERASE 55 Units/L (12-78); ALBUMIN 3.2 g/dL (3.4-5.0); ALKALINE PHOSPHATASE 64 Units/L (46-116); ASPARTATE AMINO TRANSFERASE 19 Units/L (15-37); BLOOD UREA NITROGEN 14 mg/dL (7-18); CARBON DIOXIDE 27.7 mmol/L (21-32); CHLORIDE 103 mmol/L (98-107); COR CA(FOR HYPOALB) 9.6 mg/dL (8.5-10.1); CREATININE 0.83 mg/dL (0.70-1.30); SODIUM 137 mmol/L (136-145); TOTAL PROTEIN 6.5 g/dL (6.4-8.2); eGFR NON BLACK RACES > 60 (>60)
[2020-06-24] MEDS: NS 1000 ML 1,000 ML IV SCH ×3 (06:34→22:24)
[2020-06-24] MEDS: NORCO 10/325 TAB PO PRN ×4 (06:35→22:53)
[2020-06-24] MEDS: SOMA TAB 350 MG PO SCH (08:33)
[2020-06-24] MEDS: NICOTINE PATCH TD SCH (16:03)
[2020-06-24] MEDS: COLACE CAP 100 MG PO SCH (20:22)
[2020-06-25] MEDS: MORPHINE SULFATE INJ 2 MG INJ IV PRN ×5 (01:02→20:12)
[2020-06-25] MEDS: NS 1000 ML 1,000 ML IV SCH ×3 (03:25→17:00)
[2020-06-25] MEDS: NORCO 10/325 TAB PO PRN ×4 (04:26→22:30)
[2020-06-25 05:20] LABS: BASOPHILS % (AUTO) 0.5 % (0.2-1.0); EOSINOPHILS # (AUTO) 0.3 x10^3/uL (0.0-0.2); EOSINOPHILS % (AUTO) 3.7 % (0.9-2.9); HEMATOCRIT 43.2 % (42.0-54.0); HEMOGLOBIN 14.7 g/dL (13.5-18.0); LYMPHOCYTES % (AUTO) 37.9 % (21.0-51.0); MEAN CORPUSCULAR HEMOGLOBIN 30.3 pg (27.0-34.0); MEAN CORPUSCULAR HGB CONC 34.1 g/dL (33.0-35.0); MEAN CORPUSCULAR VOLUME 88.8 fL (80.0-100.0); MEAN PLATELET VOLUME 8.6 fL (7.4-11.0); MONOCYTES # (AUTO) 0.7 x10^3/uL (0.3-0.8); MONOCYTES % (AUTO) 8.6 % (0.0-13.0); NEUTROPHILS # (AUTO) 3.9 x10^3/uL (2.2-4.8); NEUTROPHILS % (AUTO) 49.3 % (42.0-75.0); PLATELET COUNT 237 X10^3/uL (150.0-450.0); RED BLOOD COUNT 4.86 X10^6/uL (4.7-6.0); RED CELL DISTRIBUTION WIDTH 13.1 % (11.6-16.5); WHITE BLOOD COUNT 7.9 X10^3/uL (3.6-10.0)
[2020-06-25 05:25] LABS: ALANINE AMINOTRANSFERASE 54 Units/L (12-78); ALBUMIN 3.2 g/dL (3.4-5.0); ALKALINE PHOSPHATASE 66 Units/L (46-116); ASPARTATE AMINO TRANSFERASE 19 Units/L (15-37); BLOOD UREA NITROGEN 13 mg/dL (7-18); CALCIUM 8.9 mg/dL (8.5-10.1); CARBON DIOXIDE 28.6 mmol/L (21-32); CHLORIDE 101 mmol/L (98-107); COR CA(FOR HYPOALB) 9.5 mg/dL (8.5-10.1); CREATININE 0.84 mg/dL (0.70-1.30); SODIUM 133 mmol/L (136-145); TOTAL PROTEIN 6.5 g/dL (6.4-8.2); eGFR NON BLACK RACES > 60 (>60)
--- NOTE | 2020-06-25 06:55 | RAD ---
HISTORYFollow-up chest tube pneumothoraxSTUDYPortable AP [id number]/13/2021FINDINGSStable cardiac size and contour. No change in position of the right apical chest tube. There is interval improvement in aeration of the lungs with decreasing bibasal atelectasis. The left base is now essentially clear. There is slight residual increase in density at the right base. No pneumothorax is seen.IMPRESSIONImproving bibasal atelectasis. Stable chest tube position with no definite pneumothorax identified.Electronically signed by: YADIRA CROUCH (Jun 25, 2020 06:53:27)
[2020-06-25] MEDS ORDERED: NICOTINE PATCH TD SCH (09:00)
[2020-06-25] MEDS: SOMA TAB 350 MG PO SCH (09:26)
[2020-06-25] MEDS: NICOTINE PATCH TD SCH (09:27)
--- NOTE | 2020-06-25 15:48 | RAD ---
HISTORYpneumothorax, chest tube, doctor states he just clamped off the chest tubeSTUDYCHEST, 1 VIEWCOMPARISONMultiple recent chest x-rays dating back to June 17TECHNIQUEPortable chest x-rayFINDINGSThe right-sided chest tube position is unchanged. There is no interval re-expansion of the pneumothorax. Subsegmental atelectasis is observed within the right lung base. There is small amount of residual subcutaneous emphysema of the right lateral chest wall. Heart size is normal for portable film. No consolidating infiltrates or significant pleural fluid collections observed.IMPRESSIONNo evidence of re-expansion of the right-sided pneumothoraxResidual subsegmental right basilar atelectasis.Electronically signed by: BARBRA QUINONES (Jun 25, 2020 15:49:04)
--- NOTE | 2020-06-25 16:03 | RAD ---
EXAM: CHEST X-RAYHISTORY: Right chest tube placement. Follow-up evaluation.TECHNIQUE: AP chest x-ray dated June 25, 2020 at 3:40 PM.COMPARISON: CXR dated June 25, 2020 at 3:23 PM.FINDINGS:There is stable appearance of a right-sided chest tube with the distal tip in the right apical hemithorax. No gross pneumothorax or pleural effusion is seen. There is stable appearance of residual consolidative change in the right lung base in keeping with residual atelectasis; DDx includes consolidative pneumonia in the appropriate clinical setting.The heart size and mediastinum are within normal limits. The lung melchor and costophrenic angles are otherwise clear. The visualized bony structures are within normal limits.IMPRESSION:1. Stable appearance of a right-sided chest tube with the distal tip in the right apical hemithorax.2. No gross pneumothorax or pleural effusion is seen.3. Stable appearance of residual consolidative change in the right lung base in keeping with residual atelectasis; DDx includes consolidative pneumonia in the appropriate clinical setting.4. Overall, no significant interval change seen.Electronically signed by: Melania Yu (Jun 25, 2020 16:00:51)
--- NOTE | 2020-06-25 16:47 | RAD ---
EXAM: CHEST X-RAYHISTORY: Evaluation status post chest tube removal.TECHNIQUE: AP chest x-ray dated June 25, 2020 at 4:29 PM.COMPARISON: CXR dated June 25, 2020 at 3:40 PM.FINDINGS:The heart size and mediastinum are within normal limits. Status post interval right chest tube removal. There is stable appearance of right basilar consolidation in keeping with atelectasis (and/or consolidative pneumonia in the appropriate clinical setting). The lung melchor and costophrenic angles are otherwise clear. There is no pleural effusion, or pneumothorax seen. The visualized bony structures are within normal limits.IMPRESSION:1. Status post interval right chest tube removal, without evidence for pneumothorax.2. Stable appearance of right basilar consolidation in keeping with atelectasis (and/or consolidative pneumonia in the appropriate clinical setting).Electronically signed by: Melania Yu (Jun 25, 2020 16:45:21)
[2020-06-25] MEDS: COLACE CAP 100 MG PO SCH (20:11)
[2020-06-26] MEDS: MORPHINE SULFATE INJ 2 MG INJ IV PRN ×3 (01:00→12:34)
[2020-06-26] MEDS: NORCO 10/325 TAB PO PRN ×2 (03:59→09:37)
[2020-06-26 05:35] LABS: BASOPHILS % (AUTO) 0.3 % (0.2-1.0); EOSINOPHILS # (AUTO) 0.3 x10^3/uL (0.0-0.2); HEMATOCRIT 45.5 % (42.0-54.0); HEMOGLOBIN 15.3 g/dL (13.5-18.0); LYMPHOCYTES # (AUTO) 2.8 X10^3/uL (1.3-2.9); LYMPHOCYTES % (AUTO) 27.7 % (21.0-51.0); MEAN CORPUSCULAR HEMOGLOBIN 29.9 pg (27.0-34.0); MEAN CORPUSCULAR HGB CONC 33.7 g/dL (33.0-35.0); MEAN CORPUSCULAR VOLUME 88.7 fL (80.0-100.0); MEAN PLATELET VOLUME 8.9 fL (7.4-11.0); MONOCYTES # (AUTO) 0.8 x10^3/uL (0.3-0.8); MONOCYTES % (AUTO) 7.9 % (0.0-13.0); NEUTROPHILS # (AUTO) 6.2 x10^3/uL (2.2-4.8); NEUTROPHILS % (AUTO) 61.1 % (42.0-75.0); PLATELET COUNT 273 X10^3/uL (150.0-450.0); RED BLOOD COUNT 5.13 X10^6/uL (4.7-6.0); RED CELL DISTRIBUTION WIDTH 13.1 % (11.6-16.5); WHITE BLOOD COUNT 10.2 X10^3/uL (3.6-10.0)
[2020-06-26 05:52] LABS: ALANINE AMINOTRANSFERASE 52 Units/L (12-78); ALBUMIN 3.2 g/dL (3.4-5.0); ALKALINE PHOSPHATASE 67 Units/L (46-116); ASPARTATE AMINO TRANSFERASE 18 Units/L (15-37); BLOOD UREA NITROGEN 15 mg/dL (7-18); CALCIUM 9.3 mg/dL (8.5-10.1); CHLORIDE 101 mmol/L (98-107); COR CA(FOR HYPOALB) 9.9 mg/dL (8.5-10.1); CREATININE 0.85 mg/dL (0.70-1.30); SODIUM 136 mmol/L (136-145); TOTAL PROTEIN 6.7 g/dL (6.4-8.2); eGFR NON BLACK RACES > 60 (>60)
[2020-06-26] MEDS: NS 1000 ML 1,000 ML IV SCH (06:14)
--- NOTE | 2020-06-26 06:21 | RAD ---
HISTORYPneumothorax, chest tube follow upSTUDYCHEST, 1 [id number]/14/2021.TECHNIQUEAP view of the chestFINDINGSCardiac and mediastinal contours are within normal limits. Similar appearance of right worse than left base opacities. No discernible pleural effusion or pneumothorax. Soft tissue attenuation limits evaluation.IMPRESSIONNo discernible pneumothorax. Similar appearance of bibasilar opacities that may represent atelectasis or pneumonia.Electronically signed by: Doug Appiah (Jun 26, 2020 06:19:29)
[2020-06-26] MEDS: SOMA TAB 350 MG PO SCH (09:33)
[2020-06-26] MEDS: NICOTINE PATCH TD SCH (09:34)
--- NOTE | 2020-06-26 11:35 | W.DIS.FURT ---
Summary of Discharge Discharge Summary of Date Date of Exam: 06/26/20 Admission Date Date of Admission: 06/18/20 Admission Diagnosis Patient Problems (Updated 06/20/20 @ 08:54 by April Gonzalez) Chest pain (Acute) R07.9 Pneumothorax (Acute) J93.9 Hospital Course: Pt is a 35 year old male admitted for spontaneous pneumothorax of right lung requiring chest tube placement on 06/18/20. Pt responded well to treatments and hospital course included supplemental O2, pain control, and chest tube management by general surgery-Dr Devlin. Chest tube removed on 06/25/20. Labs/imaging: Wbc 10.2, Hgb 15.3, Plt 273, Na 136, K 4.1, Creatinine 0.85, Glucose 97, CXR was obtained this morning and revealed: No discernible pneumothorax. Similar appearance of bibasilar opacities that may represent atelectasis or pneumonia. Rx Levaquin x 5 days for slight leukocytosis, pt has atelectasis and does not any fever or other signs of infection. Surgery recommends 2 months of rest before return to normal activity. Pt discharged in stable condition. Instructed to follow up with pcp and general surgery in 1 week. Vital Signs: Vital Signs (72 hours) 06/23/20 11:00 06/23/20 12:00 06/23/20 12:37 Temperature 98.3 F Pulse Rate Pulse Rate [Apical] 60 74 Respiratory Rate 18 18 18 Blood Pressure [Left Arm] 117/68 136/80 O2 Sat by Pulse Oximetry 96 96 06/23/20 13:00 06/23/20 13:07 06/23/20 14:00 Temperature Pulse Rate Pulse Rate [Apical] 60 74 Respiratory Rate 18 20 18 Blood Pressure [Left Arm] 123/61 114/63 O2 Sat by Pulse Oximetry 96 94 L 06/23/20 14:37 06/23/20 15:00 06/23/20 15:37 Temperature 98.5 F Pulse Rate Pulse Rate [Apical] 70 Respiratory Rate 20 18 22 Blood Pressure [Left Arm] 114/65 O2 Sat by Pulse Oximetry 93 L 06/23/20 16:00 06/23/20 16:24 06/23/20 16:54 Temperature 98.5 F Pulse Rate Pulse Rate [Apical] 74 Respiratory Rate 18 22 20 Blood Pressure [Left Arm] 118/73 O2 Sat by Pulse Oximetry 98 06/23/20 17:00 06/23/20 19:00 06/23/20 20:00 Temperature 98.4 F Pulse Rate Pulse Rate [Apical] 68 73 79 Respiratory Rate 18 18 20 Blood Pressure [Left Arm] 123/74 125/73 125/73 O2 Sat by Pulse Oximetry 98 95 95 06/23/20 20:23 06/23/20 20:53 06/23/20 21:00 Temperature Pulse Rate Pulse Rate [Apical] 79 Respiratory Rate 14 16 20 Blood Pressure [Left Arm] 126/72 O2 Sat by Pulse Oximetry 95 06/23/20 22:00 06/23/20 23:00 06/23/20 23:49 Temperature Pulse Rate Pulse Rate [Apical] 81 58 L Respiratory Rate 20 20 16 Blood Pressure [Left Arm] 121/72 119/76 O2 Sat by Pulse Oximetry 94 L 93 L 06/24/20 00:00 06/24/20 00:49 06/24/20 01:00 Temperature 98.2 F Pulse Rate Pulse Rate [Apical] 77 59 L Respiratory Rate 20 16 18 Blood Pressure [Left Arm] 119/74 130/73 O2 Sat by Pulse Oximetry 93 L 94 L 06/24/20 02:00 06/24/20 02:14 06/24/20 02:44 Temperature Pulse Rate Pulse Rate [Apical] 65 Respiratory Rate 18 16 16 Blood Pressure [Left Arm] 116/63 O2 Sat by Pulse Oximetry 95 06/24/20 03:00 06/24/20 04:00 06/24/20 06:00 Temperature 98.3 F Pulse Rate Pulse Rate [Apical] 59 L 60 64 Respiratory Rate 20 20 18 Blood Pressure [Left Arm] 123/63 107/69 120/71 O2 Sat by Pulse Oximetry 94 L 96 96 06/24/20 06:35 06/24/20 07:00 06/24/20 07:35 Temperature Pulse Rate Pulse Rate [Apical] 71 Respiratory Rate 16 16 19 Blood Pressure [Left Arm] 105/68 O2 Sat by Pulse Oximetry 96 06/24/20 08:00 06/24/20 08:34 06/24/20 09:00 Temperature 98.4 F Pulse Rate Pulse Rate [Apical] 70 61 Respiratory Rate 20 20 18 Blood Pressure [Left Arm] 115/70 113/64 O2 Sat by Pulse Oximetry 95 92 L 06/24/20 09:04 06/24/20 10:00 06/24/20 11:00 Temperature Pulse Rate Pulse Rate [Apical] 68 70 Respiratory Rate 21 20 16 Blood Pressure [Left Arm] 113/71 119/72 O2 Sat by Pulse Oximetry 94 L 94 L 06/24/20 12:00 06/24/20 12:57 06/24/20 13:00 Temperature 97.8 F Pulse Rate Pulse Rate [Apical] 75 80 Respiratory Rate 20 19 20 Blood Pressure [Left Arm] 129/70 103/58 O2 Sat by Pulse Oximetry 96 96 06/24/20 13:57 06/24/20 14:00 06/24/20 14:53 Temperature Pulse Rate Pulse Rate [Apical] 81 76 Respiratory Rate 20 16 17 Blood Pressure [Left Arm] 106/63 138/75 O2 Sat by Pulse Oximetry 95 92 L 06/24/20 14:54 06/24/20 15:24 06/24/20 16:00 Temperature 97.6 F Pulse Rate Pulse Rate [Apical] 73 Respiratory Rate 17 16 16 Blood Pressure [Left Arm] 131/63 O2 Sat by Pulse Oximetry 94 L 06/24/20 17:00 06/24/20 18:00 06/24/20 18:18 Temperature Pulse Rate Pulse Rate [Apical] 66 82 Respiratory Rate 20 20 18 Blood Pressure [Left Arm] 125/60 130/74 O2 Sat by Pulse Oximetry 95 95 06/24/20 19:00 06/24/20 20:00 06/24/20 20:25 Temperature Pulse Rate Pulse Rate [Apical] 84 82 Respiratory Rate 18 18 18 Blood Pressure [Left Arm] 128/74 128/75 O2 Sat by Pulse Oximetry 94 L 93 L 06/24/20 20:55 06/24/20 21:00 06/24/20 22:00 Temperature Pulse Rate Pulse Rate [Apical] 84 85 Respiratory Rate 18 18 18 Blood Pressure [Left Arm] 137/91 139/81 O2 Sat by Pulse Oximetry 94 L 94 L 06/24/20 22:53 06/24/20 23:00 06/24/20 23:53 Temperature 98.3 F Pulse Rate Pulse Rate [Apical] 80 Respiratory Rate 18 18 18 Blood Pressure [Left Arm] 132/80 O2 Sat by Pulse Oximetry 94 L 06/25/20 00:00 06/25/20 01:00 06/25/20 01:02 Temperature Pulse Rate Pulse Rate [Apical] 68 73 Respiratory Rate 18 18 18 Blood Pressure [Left Arm] 136/72 132/68 O2 Sat by Pulse Oximetry 93 L 95 06/25/20 01:32 06/25/20 03:00 06/25/20 04:00 Temperature 98.5 F Pulse Rate Pulse Rate [Apical] 61 72 Respiratory Rate 18 16 18 Blood Pressure [Left Arm] 129/85 119/79 O2 Sat by Pulse Oximetry 97 96 06/25/20 04:26 06/25/20 05:00 06/25/20 05:26 Temperature Pulse Rate Pulse Rate [Apical] 56 L Respiratory Rate 16 18 16 Blood Pressure [Left Arm] 137/85 O2 Sat by Pulse Oximetry 95 06/25/20 05:47 06/25/20 06:00 06/25/20 06:17 Temperature Pulse Rate Pulse Rate [Apical] 59 L Respiratory Rate 16 18 18 Blood Pressure [Left Arm] 126/76 O2 Sat by Pulse Oximetry 95 06/25/20 07:00 06/25/20 08:00 06/25/20 09:00 Temperature 97.6 F Pulse Rate Pulse Rate [Apical] 54 L 70 72 Respiratory Rate 18 18 18 Blood Pressure [Left Arm] 113/71 118/67 114/59 O2 Sat by Pulse Oximetry 96 96 93 L 06/25/20 09:25 06/25/20 10:00 06/25/20 10:25 Temperature Pulse Rate Pulse Rate [Apical] 62 Respiratory Rate 20 19 20 Blood Pressure [Left Arm] 114/69 O2 Sat by Pulse Oximetry 93 L 06/25/20 11:00 06/25/20 11:21 06/25/20 11:51 Temperature Pulse Rate Pulse Rate [Apical] 61 Respiratory Rate 18 19 18 Blood Pressure [Left Arm] 132/80 O2 Sat by Pulse Oximetry 96 06/25/20 12:00 06/25/20 13:00 06/25/20 14:00 Temperature 98.0 F Pulse Rate Pulse Rate [Apical] 60 78 67 Respiratory Rate 18 18 18 Blood Pressure [Left Arm] 125/91 118/67 143/82 O2 Sat by Pulse Oximetry 95 94 L 96 06/25/20 15:00 06/25/20 15:38 06/25/20 16:00 Temperature 98.5 F Pulse Rate Pulse Rate [Apical] 72 59 L Respiratory Rate 18 20 18 Blood Pressure [Left Arm] 130/70 126/67 O2 Sat by Pulse Oximetry 95 95 06/25/20 16:08 06/25/20 17:00 06/25/20 17:58 Temperature Pulse Rate Pulse Rate [Apical] 68 80 Respiratory Rate 22 18 19 Blood Pressure [Left Arm] 130/77 122/7 O2 Sat by Pulse Oximetry 94 L 96 06/25/20 19:00 06/25/20 20:00 06/25/20 20:12 Temperature 98.0 F Pulse Rate Pulse Rate [Apical] 86 89 Respiratory Rate 18 20 20 Blood Pressure [Left Arm] 120/55 163/79 O2 Sat by Pulse Oximetry 95 95 06/25/20 20:35 06/25/20 20:42 06/25/20 21:00 Temperature Pulse Rate 91 H Pulse Rate [Apical] 94 H Respiratory Rate 20 20 Blood Pressure [Left Arm] 166/78 O2 Sat by Pulse Oximetry 93 L 93 L 06/25/20 22:00 06/25/20 22:30 06/25/20 23:00 Temperature Pulse Rate Pulse Rate [Apical] 85 97 H Respiratory Rate 20 18 20 Blood Pressure [Left Arm] 133/64 147/91 O2 Sat by Pulse Oximetry 92 L 95 06/25/20 23:30 06/26/20 00:00 06/26/20 01:00 Temperature Pulse Rate Pulse Rate [Apical] 94 H 91 H Respiratory Rate 18 18 18 Blood Pressure [Left Arm] 132/81 130/82 O2 Sat by Pulse Oximetry 94 L 93 L 06/26/20 01:30 06/26/20 02:00 06/26/20 03:00 Temperature Pulse Rate Pulse Rate [Apical] 94 H 70 Respiratory Rate 20 19 18 Blood Pressure [Left Arm] 123/60 124/66 O2 Sat by Pulse Oximetry 94 L 93 L 06/26/20 03:59 06/26/20 04:00 06/26/20 04:59 Temperature 98.9 F Pulse Rate Pulse Rate [Apical] 74 Respiratory Rate 18 19 20 Blood Pressure [Left Arm] 102/51 O2 Sat by Pulse Oximetry 94 L 06/26/20 05:00 06/26/20 05:15 06/26/20 05:45 Temperature Pulse Rate Pulse Rate [Apical] 70 Respiratory Rate 18 20 20 Blood Pressure [Left Arm] 101/61 O2 Sat by Pulse Oximetry 95 06/26/20 06:00 06/26/20 07:00 06/26/20 08:00 Temperature 98.9 F Pulse Rate Pulse Rate [Apical] 69 57 L 58 L Respiratory Rate 18 20 18 Blood Pressure [Left Arm] 112/76 101/67 126/75 O2 Sat by Pulse Oximetry 93 L 94 L 94 L 06/26/20 09:00 06/26/20 09:37 06/26/20 10:00 Temperature Pulse Rate Pulse Rate [Apical] 80 83 Respiratory Rate 18 18 20 Blood Pressure [Left Arm] 111/64 112/74 O2 Sat by Pulse Oximetry 95 95 06/26/20 11:00 Temperature Pulse Rate Pulse Rate [Apical] 73 Respiratory Rate 18 Blood Pressure [Left Arm] 124/70 O2 Sat by Pulse Oximetry 96 Labs: Laboratory Last Values WBC 10.2 X10^3/uL (3.6-10.0) H 06/26/20 04:56 RBC 5.13 X10^6/uL (4.7-6.0) 06/26/20 04:56 Hgb 15.3 g/dL (13.5-18.0) 06/26/20 04:56 Hct 45.5 % (42.0-54.0) 06/26/20 04:56 MCV 88.7 fL (80.0-100.0) 06/26/20 04:56 MCH 29.9 pg (27.0-34.0) 06/26/20 04:56 MCHC 33.7 g/dL (33.0-35.0) 06/26/20 04:56 RDW 13.1 % (11.6-16.5) 06/26/20 04:56 Plt Count 273 X10^3/uL (150.0-450.0) 06/26/20 04:56 MPV 8.9 fL (7.4-11.0) 06/26/20 04:56 Neut % (Auto) 61.1 % (42.0-75.0) 06/26/20 04:56 Lymph % (Auto) 27.7 % (21.0-51.0) 06/26/20 04:56 [place] % (Auto) 7.9 % (0.0-13.0) 06/26/20 04:56 Eos % (Auto) 3.0 % (0.9-2.9) H 06/26/20 04:56 Baso % (Auto) 0.3 % (0.2-1.0) 06/26/20 04:56 Neut # (Auto) 6.2 x10^3/uL (2.2-4.8) H 06/26/20 04:56 Lymph # (Auto) 2.8 X10^3/uL (1.3-2.9) 06/26/20 04:56 [place] # (Auto) 0.8 x10^3/uL (0.3-0.8) 06/26/20 04:56 Eos # (Auto) 0.3 x10^3/uL (0.0-0.2) H 06/26/20 04:56 Baso # (Auto) 0.0 X10^3/uL (0.0-0.1) 06/26/20 04:56 Absolute Nucleated RBC 0.0 /100WBC 06/26/20 04:56 Sodium 136 mmol/L (136-145) 06/26/20 04:56 Corrected Sodium TNP 06/26/20 04:56 Potassium 4.1 mmol/L (3.5-5.1) 06/26/20 04:56 Chloride 101 mmol/L (98-107) 06/26/20 04:56 Carbon Dioxide 28.0 mmol/L (21-32) 06/26/20 04:56 BUN 15 mg/dL (7-18) 06/26/20 04:56 Creatinine 0.85 mg/dL (0.70-1.30) 06/26/20 04:56 Est GFR (MDRD) Af Amer > 60 (>60) 06/26/20 04:56 Est GFR (MDRD) Non-Af > 60 (>60) 06/26/20 04:56 Glucose 97 mg/dL (65-99) 06/26/20 04:56 Calcium 9.3 mg/dL (8.5-10.1) 06/26/20 04:56 Corrected Calcium 9.9 mg/dL (8.5-10.1) 06/26/20 04:56 Total Bilirubin 0.40 mg/dL (0.2-1.0) 06/26/20 04:56 AST 18 Units/L (15-37) 06/26/20 04:56 ALT 52 Units/L (12-78) 06/26/20 04:56 Alkaline Phosphatase 67 Units/L (46-116) 06/26/20 04:56 Total Protein 6.7 g/dL (6.4-8.2) 06/26/20 04:56 Albumin 3.2 g/dL (3.4-5.0) L 06/26/20 04:56 Globulin 3.5 g/dL (2.5-4.5) 06/26/20 04:56 Albumin/Globulin Ratio 0.9 Ratio (1.1-2.1) L 06/26/20 04:56 Reason For Visit: PNEUMOTHORAX, CHEST TUBE Discharge Date Discharge Date: 06/26/20 Discharge Diagnosis All Active Problems (Updated 06/20/20 @ 08:54 by April Gonzalez) Chest pain (Acute) Pneumothorax (Acute) Plan of Treatment: Continue with present treatment and follow up plan. Pt is to keep follow up appointment as instructed and take medications as ordered. Discharge Medications Discharge Medications: No Known Drug Allergies Allergy (Verified 10/22/18 23:33) CONTINUE taking the following medications amlodipine 5 mg PO DAILY 06/19/20 [History] carisoprodol 350 mg PO DAILY PRN 06/19/20 [History] codeine-guaifenesin [Virtussin AC] 5 ml PO TID PRN 06/19/20 [History] gabapentin 100 mg PO BID PRN 06/19/20 [History] hydrocodone-acetaminophen 1 tab PO TID PRN 06/19/20 [History] New Prescriptions levofloxacin 750 mg PO Q24H 5 Days #5 tab 06/26/20 [Rx] Follow up and Referral Follow Up: 1 Week Discharge Disposition Assessment: No acute distress noted at time of discharge. Discharge Disposition: Home Discharge Condition: Stable Discharge Plan Discharge Plan Hospital Course: Pt is a 35 year old male admitted for spontaneous pneumothorax of right lung requiring chest tube placement on 06/18/20. Pt responded well to treatments and hospital course included supplemental O2, pain control, and chest tube management by general surgery-Dr Devlin. Chest tube removed on 06/25/20. Labs/imaging: Wbc 10.2, Hgb 15.3, Plt 273, Na 136, K 4.1, Creatinine 0.85, Gl ucose 97, CXR was obtained this morning and revealed: No discernible pneumothorax. Similar appearance of bibasilar opacities that may represent atelectasis or pneumonia. Rx Levaquin x 5 days for slight leukocytosis, pt has atelectasis and does not any fever or other signs of infection. Surgery recommends 2 months of rest before return to normal activity. Pt discharged in stable condition. Instructed to follow up with pcp and general surgery in 1 week. Patient Disposition: 01 HOME, SELF-CARE Condition: Stable Health Concerns: Post Hospitalization: new medications and changes needed to prevent readmission or further decline. Pt educated and given instructions on all concerns. Care Plan Goals: Problem: Respiratory Complications Goal: Improved Uncomplicated Respiratory Status Instructions: Follow provided instructions. Follow up with primary physician as directed. Contact primary care physician or report to the closest Emergency Room if condition worsens. Plan of Treatment: Continue with present treatment and follow up plan. Pt is to keep follow up appointment as instructed and take medications as ordered. Assessment: No acute distress noted at time of discharge. Prescriptions: New levofloxacin 750 mg tablet 750 mg PO Q24H 5 Days Qty: 5 RF: 0 Continued codeine-guaifenesin [Virtussin AC] 10-100 mg/5 mL Liquid 5 ml PO TID PRNRF: 0 carisoprodol 350 mg Tablet 350 mg PO DAILY PRNRF: 0 hydrocodone-acetaminophen 10-325 mg Tablet 1 tab PO TID PRN (Reason: Pain) RF: 0 gabapentin 100 mg Capsule 100 mg PO BID PRNRF: 0 amlodipine 5 mg Tablet 5 mg PO DAILY RF: 0 Discontinued prednisone 20 mg Tablet 20 mg PO DAILY RF: 0 azithromycin 250 mg Tablet 250 mg PO DAILY RF: 0 doxycycline hyclate 100 mg Tablet 100 mg PO BID RF: 0 Follow ups/Referrals Follow ups/Referrals: Jose L Styles [Primary Care Provider] - 06/29/20 2:00 pm CHAI DEVLIN [STAFF PHYSICIAN] - 06/29/20 3:00 pm Instructions Instructions: Shortness of Breath, Adult, [id number], Hand Washing, [id number], Nonspecific Chest Pain, [id number], Pneumothorax, Chest Tube Insertion, Adult, Care After Stand Alone Forms: Excuse From Work or School, Precautions for COVID19, Patient Portal, Social Distancing
[2020-06-26 13:38] VITALS: BP 116/73
== END 2020-06-26 01:05 | disposition home or self-care (01) | DRG 201 ==
LOC: ER 04:10 → MED/SURG 08:32
PROVIDERS: ADMIT Internal Medicine; ATTEND Family Medicine
DX: R07.89 Other chest pain; Z20.822 Contact with and (suspected) exposure to COVID-19; R06.02 Shortness of breath; J93.11 Primary spontaneous pneumothorax